=== PATIENT | male | born 1960 | race Caucasian/White ===

== ENCOUNTER → 2019-05-25 | Outpatient (CLI) | payer OTHER, MEDICARE ==
[~2019-05-25] MED LIST: CATHETER FLUSH 10 ML SYR IV PRN; HOLD METFORMIN - RECEIVED CONTRAST 20 ML VIAL IV SCH; IOHEXOL 350 MG/ML 100 ML (OMNIPAQUE 350) VIAL IV ONE; NS 100 ML (IVPB) BAG IV ONE; RT-ALBUTEROL SULF 2.5 MG/3 ML PRE-MIX VIAL INH ONE
[2019-05-25 12:03] LABS: BUN/CREATININE RATIO 13; CREATININE SERUM 0.92 MG/DL (0.60-1.30); GFR ESTIMATED > 60
--- NOTE | 2019-05-25 15:09 | Diagnostic Imaging Report ---
PROCEDURE: CT chest with contrast only. TECHNIQUE: Multiple contiguous axial images were obtained through the chest after administration of intravenous contrast. Auto Exposure Controls were utilized during the CT exam to meet ALARA standards for radiation dose reduction. INDICATION: COPD. Cough. COMPARISON: None provided. FINDINGS: The heart size is within normal limits. No pericardial effusion is present. No acute abnormalities are visualized in the thoracic aorta. There is scattered calcified atherosclerotic plaque present. No large pulmonary emboli are seen to the segmental pulmonary arteries. Mildly prominent mediastinal lymph nodes are visualized. No pathologically enlarged lymphadenopathy is seen in the chest. Numerous millimetric pulmonary nodules are seen throughout the lungs. A marker nodule is seen in the left lower lobe measuring 0.7 cm (image 81 series 3). A marker nodule in the inferior aspect of the right upper lobe measures 0.5 cm (image 72, series 3). Patchy opacities are seen in the right lung base. No central endobronchial obstructing lesions are identified. A small right pleural effusion is seen. Fluid is seen tracking in the minor fissure. No evidence of pneumothorax. The osseous structures demonstrate no acute abnormalities. Possible enhancing focus is seen in the medial aspect of the spleen measuring 3.6 cm. Both adrenal glands are unremarkable. IMPRESSION: 1. Patchy opacities in the right lung base with small right pleural effusion. Numerous millimetric nodular opacities are seen throughout the lungs. This constellation of findings may represent infectious or inflammatory etiology. Recommend follow-up chest CT after symptoms improve to document resolution of the nodules or stability. 2. Possible enhancing lesion in the medial aspect of the spleen. However, evaluation is suboptimal on this exam. If indicated, consider CT of the abdomen and pelvis with delayed images to further characterize. Dictated by: Dictated on workstation # [id number]
== END ==
LOC: RT 09:58
PROVIDERS: ATTEND Nurse Practitioner Family
DX: J44.9 Chronic obstructive pulmonary disease, unspecified (principal); G47.30 Sleep apnea, unspecified; Z72.0 Tobacco use
CPT/HCPCS: 36415; 71260; 82565; 84520; 94060; 94726; 94729

== ENCOUNTER 2019-06-30 14:47 | Inpatient (IN) | payer OTHER, MEDICARE ==
[~2019-06-30] VITALS: Ht 175.4 cm; Wt 124.0 kg
[2019-06-30 15:30] VITALS: BP 131/89
[2019-06-30 16:23] LABS: BASOPHILS % (AUTO) 0 % (0-10); EOSINOPHILS # (AUTO) 0.2 10^3/uL (0.0-0.3); EOSINOPHILS % (AUTO) 2 % (0-10); HEMATOCRIT 58 % (40-54); HEMOGLOBIN 18.4 G/DL (13.3-17.7); LYMPHOCYTES # (AUTO) 1.4 X 10^3 (1.0-4.0); LYMPHOCYTES % (AUTO) 18 % (12-44); MEAN CORPUSCULAR HEMOGLOBIN 34 PG (25-34); MEAN CORPUSCULAR HGB CONC 32 G/DL (32-36); MEAN CORPUSCULAR VOLUME 105 FL (80-99); MEAN PLATELET VOLUME 12.5 FL (7.4-10.4); MONOCYTES # (AUTO) 0.6 X 10^3 (0.0-1.0); MONOCYTES % (AUTO) 8 % (0-12); NEUTROPHILS # (AUTO) 5.5 X 10^3 (1.8-7.8); NEUTROPHILS % (AUTO) 71 % (42-75); PLATELET COUNT 89 10^3/uL (130-400); RED CELL DISTRIBUTION WIDTH 14.8 % (10.0-14.5); WHITE BLOOD COUNT 7.7 10^3/uL (4.3-11.0)
[2019-06-30] MEDS ORDERED: RT-ALBUTEROL/IPRATROPIUM 3 ML (DUONEB) VIAL IH PRN (16:30)
[2019-06-30] MEDS ORDERED: CATHETER FLUSH 10 ML SYR IV PRN (16:30)
--- NOTE | 2019-06-30 16:39 | Diagnostic Imaging Report ---
INDICATION: Hypoxemia. EXAMINATION: Portable chest at 4:21 p.m. FINDINGS: Heart size and pulmonary vascularity are within normal limits. There is a small right pleural effusion. IMPRESSION: Right pleural effusion with some associated right basilar consolidation. Dictated by: Dictated on workstation # [id number]
[2019-06-30 16:44] VITALS: BP 131/89
[2019-06-30 17:07] LABS: ALANINE AMINOTRANSFERASE 14 U/L (0-55); ALBUMIN 3.8 GM/DL (3.2-4.5); ALKALINE PHOSPHATASE 74 U/L (40-136); BILIRUBIN,TOTAL 0.7 MG/DL (0.1-1.0); BUN/CREATININE RATIO 12; CALCIUM 9.2 MG/DL (8.5-10.1); CARBON DIOXIDE 38 MMOL/L (21-32); CHLORIDE 95 MMOL/L (98-107); CREATININE SERUM 0.84 MG/DL (0.60-1.30); GFR ESTIMATED > 60; GLUCOSE 99 MG/DL (70-105); MAGNESIUM 1.9 MG/DL (1.6-2.4); PHOSPHORUS 2.6 MG/DL (2.3-4.7); POTASSIUM 4.3 MMOL/L (3.6-5.0); SODIUM 142 MMOL/L (135-145); TOTAL PROTEIN 6.8 GM/DL (6.4-8.2)
[2019-06-30] MEDS: FAMOTIDINE 20 MG (PEPCID) TABLET PO SCH (17:22)
[2019-06-30] MEDS: methylPREDNISolone 40 MG/ML (Solu-MEDROL) VIAL IV SCH ×2 (17:22→21:48)
[2019-06-30] MEDS: FUROSEMIDE 40 MG/4 ML INJ (LASIX) IV SCH (17:23)
[2019-06-30 20:55] VITALS: BP 128/81
[2019-06-30] MEDS: CATHETER FLUSH 10 ML SYR IV SCH (21:48)
[2019-06-30] MEDS: meTOprolol TARTRATE 50 MG (LOPRESSOR) TAB PO SCH (21:48)
[2019-06-30 22:30] VITALS: BP 128/81
[2019-06-30] MEDS: RT-ALBUTEROL/IPRATROPIUM 3 ML (DUONEB) VIAL IH SCH ×2 (22:30→22:38)
[2019-07-01] VITALS (9 sets, daily range): BP systolic 105–143; BP diastolic 57–89
[2019-07-01] MEDS: RT-ALBUTEROL/IPRATROPIUM 3 ML (DUONEB) VIAL IH SCH ×6 (03:00→22:32)
--- NOTE | 2019-07-01 03:30 | Pulmonary Consultation ---
MARISEL LAWRENCE MED STUDENT 07/01/19 0329: History of Present Illness History of Present Illness Date Seen by Provider: Jul 01, 2019 Time Seen by Provider: 03:10 Date of Admission The patient is an obese 58 year old male who was admitted to the ICU for increasing shortness of breath. The patient is answering all questions appropriately and fully cooperates with the physical exam. The patient states that he was seen in the office by Dr. Paul yesterday, who admitted him to the ICU. Today he reports that his shortness of breath is unchanged. He admits to an 80 pk/yr smoking history but has recently reduced his smoking to 1/2 pack per day. He reports a persistent cough that is non-productive. He denies chest pain, fever, chills, nausea, vomiting, or diarrhea. He has no questions or concerns at this time. Allergies and Home Medications Allergies Coded Allergies: No Known Drug Allergies (Unverified , 05/25/19) Past Vyecgyg-Fnnnif-Lbuyvx Hx Patient Social History Alcohol Use: Denies Use Recreational Drug Use: No Recent Foreign Travel: No Contact w/Someone Who Travel: No Recent Infectious Disease Expo: No Recent Hopitalizations: No Seasonal Allergies Seasonal Allergies: No Past Medical History Surgeries: Yes Respiratory: Yes Sleep Apnea, COPD Currently Using CPAP: Yes Cardiac: Yes Neurological: No Genitourinary: No Gastrointestinal: No Musculoskeletal: Yes (ESINFICLLIC GRANULOMA ) Endocrine: No HEENT: No Cancer: No Integumentary: No Family Medical History Diabetes mellitus 19 MOTHER Review of Systems Constitutional: No: Fever, Chills Respiratory: Cough, Shortness of breath; No: Sputum Cardiovascular: No: Chest Pain Gastrointestinal: No: Nausea, Vomiting, Diarrhea Sepsis Event Evaluation Height, Weight, BMI Height: '" Weight: lbs. oz. kg; 43.75 BMI Method: Exam Exam Vital Signs Date Time Temp Pulse Resp B/P (MAP) Pulse Ox O2 Delivery O2 Flow Rate FiO2 07/01/19 01:00 83 07/01/19 00:15 36.0 NIV Bilevel 65.00 07/01/19 00:00 77 23 143/84 (103) 89 Nasal Cannula 5.00 07/01/19 00:00 92 NIV Bilevel 65 06/30/19 21:00 90 Nasal Cannula 5.00 06/30/19 20:55 92 22 128/81 (97) 90 Nasal Cannula 5.00 06/30/19 20:00 36.2 06/30/19 20:00 90 Nasal Cannula 5.00 06/30/19 19:20 93 Nasal Cannula 6.00 06/30/19 19:00 95 06/30/19 17:27 99 06/30/19 16:44 36.3 89 20 131/89 94 Nasal Cannula 5.00 5.00 06/30/19 15:30 36.3 89 20 131/89 (103) 94 Nasal Cannula 5.00 06/30/19 15:30 Nasal Cannula 5.00 I & O 07/01/19 06:59 Intake Total 700 ml Balance 700 ml Height & Weight Height: '" Weight: lbs. oz. kg; 43.75 BMI Method: General Appearance: No Apparent Distress, Obese Cardiovascular: Bradycardia Capillary Refill: Less Than 3 Seconds Extremity: Pedal Edema Neurologic/Psychiatric: Alert, Oriented x3 Skin: Normal Color, Warm/Dry Results Lab Laboratory Tests 06/30/19 16:10 06/30/19 16:30 Assessment/Plan Assessment/Plan COPD exacerbation -Duonebs Q4h RT; Q2h PRN -Solumedrol 40mg Q6h -Sputum culture Acute Respiratory Failure -BiPAP 15/5/70% -ABGs CHF -Lasix 80mg daily DVT prophylaxis -Enoxaparin 40mg daily DAYRON PAUL DO 07/01/19 0500: History of Present Illness History of Present Illness Time Seen by Provider: 04:53 Allergies and Home Medications Allergies Coded Allergies: No Known Drug Allergies (Unverified , 05/25/19) Past Qvbjsts-Ontola-Xoweqc Hx Family Medical History Diabetes mellitus 19 MOTHER Review of Systems Time Seen by Provider: 04:53 Exam Exam General Appearance: No Apparent Distress, Obese HEENT: PERRL/EOMI, Pharynx Normal Neck: Non Tender, Supple Respiratory: Decreased Breath Sounds Cardiovascular: Bradycardia Gastrointestinal: normal bowel sounds, non tender, soft Extremity: Pedal Edema Neurologic/Psychiatric: Alert, Oriented x3 Skin: Normal Color, Warm/Dry Assessment/Plan Assessment/Plan COPD exacerbation -Duonebs Q4h RT; Q2h PRN -Solumedrol 40mg Q6h -toro cultures pending -Repeat ABG Acute on chronic Respiratory Failure -C02 on admission -BiPAP 15/5/70% -ABG C02 on admission is 64 -Pt is high risk for continued decline and recurrent hospitalizations. Pt will benefit from home vent to mask. 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 I reviewed and verified all information documented by the medical student and made modifications to such information, when appropriate. I personally performed the physical exam and medical decision making. Dayron Paul, Jul 01, 2019,05:00 MARISEL LAWRENCE MED STUDENT Jul 01, 2019 03:29 DAYRON PAUL DO Jul 01, 2019 05:00
[2019-07-01 03:36] LABS: BASOPHILS % (AUTO) 0 % (0-10); EOSINOPHILS % (AUTO) 0 % (0-10); HEMATOCRIT 58 % (40-54); HEMOGLOBIN 18.3 G/DL (13.3-17.7); LYMPHOCYTES # (AUTO) 0.6 X 10^3 (1.0-4.0); LYMPHOCYTES % (AUTO) 9 % (12-44); MEAN CORPUSCULAR HEMOGLOBIN 33 PG (25-34); MEAN CORPUSCULAR HGB CONC 31 G/DL (32-36); MEAN CORPUSCULAR VOLUME 105 FL (80-99); MONOCYTES % (AUTO) 1 % (0-12); NEUTROPHILS # (AUTO) 5.8 X 10^3 (1.8-7.8); NEUTROPHILS % (AUTO) 90 % (42-75); PLATELET COUNT 89 10^3/uL (130-400); RED CELL DISTRIBUTION WIDTH 14.7 % (10.0-14.5); WHITE BLOOD COUNT 6.5 10^3/uL (4.3-11.0)
[2019-07-01 04:42] LABS: BUN/CREATININE RATIO 16; CALCIUM 9.3 MG/DL (8.5-10.1); CARBON DIOXIDE 31 MMOL/L (21-32); CHLORIDE 96 MMOL/L (98-107); GFR ESTIMATED > 60; GLUCOSE 206 MG/DL (70-105); PHOSPHORUS 3.3 MG/DL (2.3-4.7); POTASSIUM 4.6 MMOL/L (3.6-5.0); SODIUM 140 MMOL/L (135-145)
[2019-07-01 05:40] LABS: ABG BASE EXCESS 15.1 MMOL/L (-2.5-2.5); ABG OXYGEN SATURATION 93 % (94-100); ABG PCO2 67 MMHG (35-45); ABG PO2 62 MMHG (79-93)
[2019-07-01 05:49] LABS: ALLENS TEST POSITIVE; INSPIRED O2 65%; PATIENT TEMP 36.2; VENTILATOR NO
[2019-07-01] MEDS: methylPREDNISolone 40 MG/ML (Solu-MEDROL) VIAL IV SCH ×4 (06:04→21:47)
[2019-07-01] MEDS: CATHETER FLUSH 10 ML SYR IV SCH ×3 (06:04→21:47)
[2019-07-01 06:48] LABS: LYMPHOCYTES % (MANUAL) 7 %; MONOCYTES % (MANUAL) 1 %; NEUTROPHILS % (MANUAL) 92 %
--- NOTE | 2019-07-01 08:06 | History & Physical-Hospitalist ---
History of Present Illness HPI/Chief Complaint Pt is a 58yoCM with a PMH of NIDDMII, COPD, and HTN who presented to Dr Paul's office yesterday due to SOB. He states this has been going on for a days to weeks but he's not sure. He is currently on BiPAP and answers are somewhat limited by that. He normally wears oxygen but was unable to maintain his oxygen sats with that and had increased it but on arrival to Dr Paul's office he was still hypoxia and ABG revealed hypoxemia. CT was done which showed no PE, moderate pleural effusion, and extensive bilateral infiltrates. He was admitted to [facility] for acute COPD exacerbation. This morning he states he is breathing better with the BiPAP and has no other complaints. Source: patient Date Seen 07/01/19 Time Seen by a Provider: 08:00 Attending Physician Josh Mistry MD PCP No,Local Physician Referring Physician Date of Admission Jun 30, 2019 at 15:57 Home Medications & Allergies Home Medications Reviewed patient Home Medication Reconciliation performed by pharmacy medication reconciliations ct technician and/or nursing. Patients Allergies have been reviewed. Allergies Allergies Coded Allergies No Known Drug Allergies (Uicgckphhg56/27/19) Past Gutbzji-Mbubra-Cxdvhj Hx Past Med/Social Hx: Reviewed Nursing Past Med/Soc Hx Patient Social History Alcohol Use: Denies Use Recreational Drug Use: No Smoking Status: Current Everyday Smoker Physical Abuse Screen: No Sexual Abuse: No Recent Foreign Travel: No Contact w/other who traveled: No Recent Hopitalizations: No Recent Infectious Disease Expo: No Seasonal Allergies Seasonal Allergies: No Past Medical History Respiratory: COPD Currently Using CPAP: Yes Cardiac: Chronic Edema/Swelling, Hypertension Endocrine: Diabetes, Non-Insulin dep Family History Diabetes mellitus 19 MOTHER Review of Systems Constitutional: No chills, No fever, No weakness EENTM: no symptoms reported Respiratory: cough, dyspnea on exertion; No phlegm; short of breath Cardiovascular: no symptoms reported Gastrointestinal: no symptoms reported Genitourinary: no symptoms reported Musculoskeletal: no symptoms reported Skin: no symptoms reported Psychiatric/Neurological: No Symptoms Reported Physical Exam Physical Exam Vital Signs Vital Signs - First Documented 06/30/19 07/01/19 15:30 00:00 Temp 36.3 Pulse 89 Resp 20 B/P (MAP) 131/89 (103) Pulse Ox 94 O2 Delivery Nasal Cannula O2 Flow Rate 5.00 FiO2 65 Capillary Refill : Less Than 3 Seconds Height, Weight, BMI Height: '" Weight: lbs. oz. kg; 43.75 BMI Method: General Appearance: No Apparent Distress, Obese HEENT: No Scleral Icterus (L), No Scleral Icterus (R); Other (somewhat obscured by BiPAP mask) Neck: No JVD Respiratory: No Accessory Muscle Use, Wheezing, Other (on BiPAP) Cardiovascular: Regular Rate, Rhythm, No Murmur, Normal Peripheral Pulses Gastrointestinal: Normal Bowel Sounds, Non Tender, Soft Extremity: No Calf Tenderness, Pedal Edema, Swelling Neurologic/Psychiatric: Alert, Oriented x3, Normal Mood/Affect Skin: Other (venous stasis dermatitis on legs) Results Results/Procedures Labs Laboratory Tests 06/30/19 16:10 06/30/19 16:30 07/01/19 03:24 Patient resulted labs reviewed. Imaging: Reviewed Imaging Report Imaging Date of Exam:06/30/19 CT ANGIO CHEST W PROCEDURE: CT angiography of the chest with contrast. TECHNIQUE: Multiple contiguous axial images were obtained through the chest after uneventful bolus administration of intravenous contrast. 3D reconstructed CTA MIP acquisitions were also performed. Auto Exposure Controls were utilized during the CT exam to meet ALARA standards for radiation dose reduction. INDICATION: Shortness of breath. COMPARISON: Correlation is made with prior CT chest from 05/25/2019. FINDINGS: Evaluation of the pulmonary arterial system is without evidence of thromboembolism. No definite filling defects are seen within central, lobar, or segmental branches. The thoracic aorta is normal in caliber. No dissection is identified. No pericardial fluid is identified. There is trace left pleural effusion and mnuda-cs-dtwiievf right pleural effusion, similar to examination one month earlier. No axillary lymphadenopathy is identified. There are mildly prominent lymph nodes in the mediastinum, similar to prior exam. The poncho are unremarkable. Parenchymal evaluation does show centrilobular emphysematous changes. There is some ill-defined micronodules throughout both lungs, similar to prior exam. There is some parenchymal consolidation in the right lower lobe and right middle lobe, similar to prior exam. Upper abdomen is unremarkable. IMPRESSION: 1. No evidence of pulmonary embolism or thoracic aortic dissection. 2. Trace left and moderate right pleural effusion. 3. Extensive bilateral infiltrates, consolidative in the right lower lobe and right middle lobe. There are ill-defined nodular opacities throughout both lungs. The findings remain suggestive of an infectious/inflammatory process with underlying centrilobular emphysema. Assessment/Plan Admission Diagnosis Acute Hypoxemic Respiratory Failure Admission Status: Inpatient Order (span 2 midnights) Reason for Inpatient Admission: On bipap, will take more than two midnights to stablize for DC Assessment and Plan Acute Hypoxemic Respiratory Failure COPD with Acute Exacerbation Continue Steroids Pulm consulted, appreciate recs Continue Lasix ADRIANO level pending Afebrile and no leukocytosis so will hold on antibiotics but low threshold for them NIDDMII SSI Anticipate high blood sugars with steroids HTN BP normotensive currently Trend Polycythemia From chronic hypoxia Thrombocytopenia ?etiology no baseline available but is stable Tobacco abuse Recently cut back, encouraged continued cessation DVT ppx: Continue Lovenox Diagnosis/Problems Diagnosis/Problems (1) Acute respiratory failure Qualifiers: Respiratory failure complication: hypoxia Qualified Codes: J96.01 - Acute respiratory failure with hypoxia (2) COPD (chronic obstructive pulmonary disease) Qualifiers: COPD type: COPD with acute exacerbation Qualified Codes: J44.1 - Chronic obstructive pulmonary disease with (acute) exacerbation (3) Essential (primary) hypertension Status: Chronic (4) Non-insulin dependent type 2 diabetes mellitus Status: Chronic (5) Thrombocytopenia Status: Acute (6) Polycythemia secondary to hypoxia Status: Acute Clinical Quality Measures DVT/VTE Risk/Contraindication: Risk Factor Score Per Nursin RFS Level Per Nursing on Admit: 4+=Very High JOSH MISTRY MD Jul 01, 2019 08:06
[2019-07-01] MEDS ORDERED: ONDANSETRON 4 MG/2 ML (SDV) Z0FRAN IV PRN (08:15)
[2019-07-01] MEDS ORDERED: BISACODYL 10 MG SUPP (DULCOLAX) PR PRN (08:15)
[2019-07-01] MEDS ORDERED: MILK OF MAGNESIA 400 MG/5 ML 30 ML UDC PO PRN (08:15)
[2019-07-01] MEDS ORDERED: ACETAMINOPHEN 325 MG TABLET PO PRN (08:15)
[2019-07-01] MEDS ORDERED: BENZONATATE 100 MG (TESSALON) CAPSULE PO PRN (08:15)
[2019-07-01] MEDS ORDERED: ANTACID SUSP 30 ML UDC (MYLANTA) PO PRN (08:15)
--- NOTE | 2019-07-01 08:37 | Diagnostic Imaging Report ---
INDICATION: Respiratory failure. Portable chest 3:39 AM There is cardiomegaly. Pulmonary vascularity is normal. There is a small right pleural effusion. IMPRESSION: Small right pleural effusion. No significant change from the previous day. Dictated by: Dictated on workstation # [id number]
[2019-07-01] MEDS: meTOprolol TARTRATE 50 MG (LOPRESSOR) TAB PO SCH ×2 (08:40→21:50)
[2019-07-01] MEDS: lisINopril 20 MG (PRINIVIL) TABLET PO SCH (08:40)
[2019-07-01] MEDS: FAMOTIDINE 20 MG (PEPCID) TABLET PO SCH (08:40)
[2019-07-01] MEDS: FUROSEMIDE 40 MG/4 ML INJ (LASIX) IV SCH (08:40)
[2019-07-01] MEDS ORDERED: ENOXAPARIN 40 MG/0.4 ML (LOVENOX) SYR SC SCH (09:00)
[2019-07-01] MEDS ORDERED: LISINOPRIL PO (09:31)
[2019-07-01] MEDS ORDERED: BUDE10.2 IH (09:31)
[2019-07-01] MEDS ORDERED: MULT1TAB69 PO (09:31)
[2019-07-01] MEDS ORDERED: FURO40TA4 PO (09:31)
[2019-07-01] MEDS ORDERED: POTASSIUM PO (09:31)
[2019-07-01] MEDS ORDERED: EYE DROPS (09:31)
[2019-07-01] MEDS ORDERED: METOPROLOL PO (09:31)
[2019-07-01] MEDS ORDERED: TIOT4MIS2 IH (09:32)
[2019-07-01] MEDS: inSUlin ASPART (NovoLOG) 1 UNIT/0.01 ML (CHARGE PER UNIT) SC SCH ×3 (10:24→21:34)
[2019-07-01 10:43] LABS: BILIRUBIN,URINE NEGATIVE (NEGATIVE); CLARITY,URINE CLEAR; COLOR,URINE YELLOW; GLUCOSE, URINE (UA) 2+ (NEGATIVE); KETONES,URINE NEGATIVE (NEGATIVE); LEUKOCYTE ESTERASE ,URINE NEGATIVE (NEGATIVE); NITRITE,URINE NEGATIVE (NEGATIVE); PH,URINE 6.5 (5-9); PROTEIN,URINE NEGATIVE (NEGATIVE)
[2019-07-01 10:49] LABS: BACTERIA,URINE NEGATIVE /HPF; SQUAMOUS EPITHELIAL CELL,UR RARE /HPF
[2019-07-01] MEDS ORDERED: METO50TA15 PO (15:41)
[2019-07-01] MEDS ORDERED: FOSI10TA3 PO (15:41)
[2019-07-01] MEDS ORDERED: LATA2.5D5 OU (15:41)
[2019-07-01] MEDS ORDERED: BRIMON0.2 OU (15:41)
[2019-07-01] MEDS ORDERED: POTA-51 PO (15:41)
[2019-07-01] MEDS ORDERED: ATOR80TA76 PO (16:03)
[2019-07-01] MEDS ORDERED: ASPI-983 PO (16:03)
[2019-07-01] MEDS: ASPIRIN E.C. 81 MG (ECOTRIN) TAB PO SCH (19:23)
[2019-07-01] MEDS ORDERED: ADVAIR HFA 115/21 MCG INHALER 8 GM IH SCH (20:00)
[2019-07-01] MEDS: UMECLIDINIUM BROMIDE (INCRUSE ELLIPTA) 7'S IH SCH (20:13)
[2019-07-01] MEDS: BRIMONIDINE 0.2% (ALPHAGAN) OPHTH SOLN 5 ML BTL OU SCH (21:34)
[2019-07-01] MEDS: LATANOPROST 0.005% (XALATAN) OPHTH SOLN 2.5 ML OU SCH (21:34)
[2019-07-01] MEDS: ENOXAPARIN 40 MG/0.4 ML (LOVENOX) SYR SC SCH (21:35)
[2019-07-02 00:41] VITALS: BP 92/63
[2019-07-02] MEDS: RT-ALBUTEROL/IPRATROPIUM 3 ML (DUONEB) VIAL IH SCH ×5 (03:06→19:04)
[2019-07-02 04:35] VITALS: BP 106/72
[2019-07-02] MEDS: methylPREDNISolone 40 MG/ML (Solu-MEDROL) VIAL IV SCH ×4 (04:47→21:51)
[2019-07-02] MEDS: KCL 20 MEQ TAB (K-DUR) PO SCH ×2 (05:39→16:57)
[2019-07-02] MEDS: FUROSEMIDE 40 MG/4 ML INJ (LASIX) IV SCH (05:39)
[2019-07-02 05:49] LABS: BASOPHILS % (AUTO) 0 % (0-10); EOSINOPHILS % (AUTO) 0 % (0-10); HEMATOCRIT 57 % (40-54); HEMOGLOBIN 18.1 G/DL (13.3-17.7); LYMPHOCYTES # (AUTO) 0.6 X 10^3 (1.0-4.0); LYMPHOCYTES % (AUTO) 6 % (12-44); MEAN CORPUSCULAR HEMOGLOBIN 33 PG (25-34); MEAN CORPUSCULAR HGB CONC 32 G/DL (32-36); MEAN CORPUSCULAR VOLUME 104 FL (80-99); MEAN PLATELET VOLUME 11.4 FL (7.4-10.4); MONOCYTES # (AUTO) 0.3 X 10^3 (0.0-1.0); MONOCYTES % (AUTO) 3 % (0-12); NEUTROPHILS # (AUTO) 9.2 X 10^3 (1.8-7.8); NEUTROPHILS % (AUTO) 92 % (42-75); PLATELET COUNT 123 10^3/uL (130-400); RED CELL DISTRIBUTION WIDTH 15.2 % (10.0-14.5); WHITE BLOOD COUNT 10.1 10^3/uL (4.3-11.0)
[2019-07-02 06:03] LABS: BUN/CREATININE RATIO 22; CALCIUM 9.4 MG/DL (8.5-10.1); CARBON DIOXIDE 30 MMOL/L (21-32); CHLORIDE 95 MMOL/L (98-107); CREATININE SERUM 0.92 MG/DL (0.60-1.30); GFR ESTIMATED > 60; GLUCOSE 224 MG/DL (70-105); MAGNESIUM 2.1 MG/DL (1.6-2.4); SODIUM 141 MMOL/L (135-145)
[2019-07-02] MEDS: inSUlin ASPART (NovoLOG) 1 UNIT/0.01 ML (CHARGE PER UNIT) SC SCH ×4 (06:04→20:58)
[2019-07-02] MEDS: CATHETER FLUSH 10 ML SYR IV SCH ×3 (06:05→21:51)
[2019-07-02] MEDS: RT-ADVAIR HFA 115/21 MCG PER PUFF IH SCH ×3 (07:24→19:04)
[2019-07-02 07:51] VITALS: BP 117/63
[2019-07-02 08:01] LABS: ABG BASE EXCESS 13.8 MMOL/L (-2.5-2.5); ABG OXYGEN SATURATION 93 % (94-100); ABG PCO2 62 MMHG (35-45); ABG PH 7.42 (7.37-7.43); ABG PO2 68 MMHG (79-93); ABG TCO2 40.9 MMOL/L (21.0-31.0)
[2019-07-02 08:02] LABS: ALLENS TEST YES-POS; INSPIRED O2 70%; PATIENT TEMP 37; VENTILATOR NO
--- NOTE | 2019-07-02 08:11 | Pulmonary Progress Note ---
Subjective Time Seen by a Provider: 08:02 Subjective/Events-last exam Pt is still requiring high flow oxygen Sepsis Event Evaluation Height, Weight, BMI Height: '" Weight: lbs. oz. kg; 43.75 BMI Method: Focused Exam Lactate Level 06/30/19 16:30: Lactic Acid Level 0.83 Exam Exam Vital Signs Date Time Temp Pulse Resp B/P (MAP) Pulse Ox O2 Delivery O2 Flow Rate FiO2 07/02/19 07:32 89 Nasal Cannula 15.00 07/02/19 04:35 36.4 87 18 106/72 (83) 93 NIV Bilevel 70.00 07/02/19 04:10 93 NIV Bilevel 65 07/02/19 03:06 70 20 91 70.00 07/02/19 00:41 36.4 87 18 92/63 (73) 90 NIV Bilevel 70.00 07/02/19 00:00 93 NIV Bilevel 65 07/01/19 22:32 87 Nasal Cannula 10.00 07/01/19 21:00 High Flow N/C 15.00 07/01/19 20:00 36.7 83 20 108/72 (84) 92 High Flow N/C 13.00 07/01/19 20:00 High Flow N/C 15.00 07/01/19 19:14 88 Nasal Cannula 10.00 07/01/19 16:00 High Flow N/C 10.00 07/01/19 15:34 67 20 110/68 (82) 91 High Flow N/C 10.00 07/01/19 15:06 90 Nasal Cannula 10.00 07/01/19 12:17 36.1 54 22 114/57 (76) 90 High Flow N/C 10.00 07/01/19 12:00 High Flow N/C 10.00 07/01/19 11:10 86 Nasal Cannula 6.00 07/01/19 10:10 Nasal Cannula 6.00 07/01/19 10:05 36.9 80 20 105/77 (86) 94 Nasal Cannula 6.00 07/01/19 09:00 90 Nasal Cannula 5.00 I & O 07/02/19 07:00 Intake Total 1590 ml Balance 1590 ml Height & Weight Height: '" Weight: lbs. oz. kg; 43.75 BMI Method: General Appearance: No Apparent Distress, Obese HEENT: No Scleral Icterus (L), No Scleral Icterus (R); Other (somewhat obscured by BiPAP mask) Neck: No JVD Respiratory: No Accessory Muscle Use, Wheezing, Other (on BiPAP) Cardiovascular: Regular Rate, Rhythm, No Murmur, Normal Peripheral Pulses Capillary Refill: Less Than 3 Seconds Gastrointestinal: normal bowel sounds, non tender, soft Extremity: No Calf Tenderness, Pedal Edema, Swelling Neurologic/Psychiatric: Alert, Oriented x3, Normal Mood/Affect Skin: Other (venous stasis dermatitis on legs) Results Lab Laboratory Tests 06/30/19 16:10 06/30/19 16:30 07/01/19 03:24 07/02/19 05:12 Assessment/Plan Assessment/Plan COPD exacerbation -Duonebs Q4h RT; Q2h PRN -Solumedrol 40mg Q6h -toro cultures pending -Repeat ABG Acute on chronic Respiratory Failure -C02 on admission -BiPAP 15/5/70% -ABG C02 on admission is 64 -Pt is high risk for continued decline and recurrent hospitalizations. Pt will benefit from home vent to mask. 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
[2019-07-02] MEDS: lisINopril 20 MG (PRINIVIL) TABLET PO SCH (08:43)
[2019-07-02] MEDS: FAMOTIDINE 20 MG (PEPCID) TABLET PO SCH (08:43)
[2019-07-02] MEDS: meTOprolol TARTRATE 50 MG (LOPRESSOR) TAB PO SCH ×2 (08:43→20:57)
[2019-07-02] MEDS: BRIMONIDINE 0.2% (ALPHAGAN) OPHTH SOLN 5 ML BTL OU SCH ×2 (08:43→20:58)
[2019-07-02] MEDS: ENOXAPARIN 40 MG/0.4 ML (LOVENOX) SYR SC SCH ×2 (08:44→20:57)
[2019-07-02] MEDS ORDERED: FUROSEMIDE 40 MG/4 ML INJ (LASIX) IVP NR (08:45)
[2019-07-02] MEDS ORDERED: KCL 20 MEQ TAB (K-DUR) PO NR (08:46)
[2019-07-02 11:22] VITALS: BP 99/58
--- NOTE | 2019-07-02 11:24 | Progress Note - Hospitalist ---
Subjective HPI/CC On Admission Date Seen by Provider: Jul 02, 2019 Time Seen by Provider: 11:20 Pt is a 58yoCM with a PMH of NIDDMII, COPD, and HTN who presented to Dr Paul's office yesterday due to SOB. He states this has been going on for a days to weeks but he's not sure. He is currently on BiPAP and answers are somewhat limited by that. He normally wears oxygen but was unable to maintain his oxygen sats with that and had increased it but on arrival to Dr Paul's office he was still hypoxia and ABG revealed hypoxemia. CT was done which showed no PE, moderate pleural effusion, and extensive bilateral infiltrates. He was admitted to [facility] for acute COPD exacerbation. This morning he states he is breathing better with the BiPAP and has no other complaints. Subjective/Events-last exam Pt reports breathing is fine. No SOB or ALCARAZ. just low oxygen numbers. Discussed plan for diuresis and he states this has helped in the past. Focused Exam Lactate Level 06/30/19 16:30: Lactic Acid Level 0.83 Objective Exam Vital Signs Vital Signs Date Time Temp Pulse Resp B/P (MAP) Pulse Ox O2 Delivery O2 Flow Rate FiO2 07/02/19 10:46 90 Vapotherm 30.00 85 07/02/19 07:51 36.4 104 24 117/63 (81) Capillary Refill : Less Than 3 Seconds General Appearance: No Apparent Distress, Chronically ill, Obese Respiratory: No Accessory Muscle Use, No Respiratory Distress, Decreased Breath Sounds, Other (on vapotherm, breathing comfortbaly) Cardiovascular: Regular Rate, Rhythm, No Murmur Gastrointestinal: Non Tender, Soft Neurologic/Psychiatric: Alert, Oriented x3 Results/Procedures Lab Laboratory Tests 07/02/19 05:12 Patient resulted labs reviewed. Imaging: Reviewed Imaging Report Assessment/Plan Assessment and Plan Assess & Plan/Chief Complaint Acute Hypoxemic Respiratory Failure COPD with Acute Exacerbation Continue Steroids Pulm consulted, appreciate recs Continue Lasix- extra dose given today by Dr Paul ADRIANO level pending NIDDMII SSI Anticipate high blood sugars with steroids HTN BP normotensive currently Trend Polycythemia From chronic hypoxia Thrombocytopenia- improved ?etiology no baseline available but is stable HLD Continue statin Tobacco abuse Recently cut back, encouraged continued cessation DVT ppx: Continue Lovenox Diagnosis/Problems Diagnosis/Problems (1) Acute respiratory failure Qualifiers: Respiratory failure complication: hypoxia Qualified Codes: J96.01 - Acute respiratory failure with hypoxia (2) COPD (chronic obstructive pulmonary disease) Qualifiers: COPD type: COPD with acute exacerbation Qualified Codes: J44.1 - Chronic obstructive pulmonary disease with (acute) exacerbation (3) Essential (primary) hypertension Status: Chronic (4) Non-insulin dependent type 2 diabetes mellitus Status: Chronic (5) Thrombocytopenia Status: Acute (6) Polycythemia secondary to hypoxia Status: Acute Clinical Quality Measures DVT/VTE Risk/Contraindication: Risk Factor Score Per Nursin RFS Level Per Nursing on Admit: 4+=Very High JOSH TORREZ MD Jul 02, 2019 11:24
[2019-07-02 16:00] VITALS: BP 106/58
[2019-07-02 20:40] VITALS: BP 122/61
[2019-07-02] MEDS: LATANOPROST 0.005% (XALATAN) OPHTH SOLN 2.5 ML OU SCH (20:58)
[2019-07-03] VITALS (7 sets, daily range): BP systolic 107–143; BP diastolic 68–84
[2019-07-03] MEDS: RT-ALBUTEROL/IPRATROPIUM 3 ML (DUONEB) VIAL IH SCH ×7 (00:03→23:00)
[2019-07-03] MEDS: methylPREDNISolone 40 MG/ML (Solu-MEDROL) VIAL IV SCH ×4 (05:00→21:46)
[2019-07-03 05:32] LABS: BASOPHILS % (AUTO) 0 % (0-10); EOSINOPHILS % (AUTO) 0 % (0-10); HEMATOCRIT 55 % (40-54); HEMOGLOBIN 17.8 G/DL (13.3-17.7); LYMPHOCYTES # (AUTO) 0.5 X 10^3 (1.0-4.0); LYMPHOCYTES % (AUTO) 5 % (12-44); MEAN CORPUSCULAR HEMOGLOBIN 34 PG (25-34); MEAN CORPUSCULAR HGB CONC 32 G/DL (32-36); MEAN CORPUSCULAR VOLUME 104 FL (80-99); MEAN PLATELET VOLUME 11.8 FL (7.4-10.4); MONOCYTES # (AUTO) 0.4 X 10^3 (0.0-1.0); MONOCYTES % (AUTO) 4 % (0-12); NEUTROPHILS # (AUTO) 9.1 X 10^3 (1.8-7.8); NEUTROPHILS % (AUTO) 91 % (42-75); PLATELET COUNT 109 10^3/uL (130-400); RED CELL DISTRIBUTION WIDTH 15.4 % (10.0-14.5)
[2019-07-03 05:50] LABS: BUN/CREATININE RATIO 30; CALCIUM 9.3 MG/DL (8.5-10.1); CARBON DIOXIDE 32 MMOL/L (21-32); CHLORIDE 96 MMOL/L (98-107); CREATININE SERUM 0.81 MG/DL (0.60-1.30); GFR ESTIMATED > 60; GLUCOSE 222 MG/DL (70-105); MAGNESIUM 2.1 MG/DL (1.6-2.4); POTASSIUM 4.4 MMOL/L (3.6-5.0); SODIUM 140 MMOL/L (135-145)
[2019-07-03] MEDS: KCL 20 MEQ TAB (K-DUR) PO SCH ×2 (06:41→16:51)
[2019-07-03] MEDS: CATHETER FLUSH 10 ML SYR IV SCH ×3 (06:41→19:59)
[2019-07-03] MEDS: FUROSEMIDE 40 MG/4 ML INJ (LASIX) IV SCH (06:41)
[2019-07-03] MEDS: inSUlin ASPART (NovoLOG) 1 UNIT/0.01 ML (CHARGE PER UNIT) SC SCH ×4 (06:42→21:47)
--- NOTE | 2019-07-03 08:01 | Pulmonary Progress Note ---
Subjective Time Seen by a Provider: 08:01 Subjective/Events-last exam Still requiring Vapotherm high flow oxygen Sepsis Event Evaluation Height, Weight, BMI Height: '" Weight: lbs. oz. kg; 43.75 BMI Method: Focused Exam Lactate Level 06/30/19 16:30: Lactic Acid Level 0.83 Exam Exam Vital Signs Date Time Temp Pulse Resp B/P (MAP) Pulse Ox O2 Delivery O2 Flow Rate FiO2 07/03/19 04:15 36.4 62 18 112/75 (87) 95 NIV Bilevel 70.00 07/03/19 04:00 Vapotherm 85 07/03/19 03:32 58 20 90 70.00 07/03/19 00:25 36.4 62 18 113/77 (89) 93 NIV Bilevel 70.00 07/03/19 00:00 Vapotherm 85 07/02/19 21:00 Vapotherm 07/02/19 20:40 36.3 88 22 122/61 (81) 92 Vapotherm 30.00 85.00 07/02/19 20:00 Vapotherm 85 07/02/19 19:06 90 Vapotherm 30.00 85 07/02/19 16:00 37.0 87 22 106/58 (74) 92 Vapotherm 30.00 85.00 07/02/19 16:00 Vapotherm 85 07/02/19 15:00 90 Vapotherm 30.00 85 07/02/19 12:00 Vapotherm 07/02/19 11:22 36.6 80 22 99/58 (72) 90 Vapotherm 30.00 85.00 07/02/19 10:46 90 Vapotherm 30.00 85 07/02/19 09:00 Vapotherm I & O 07/03/19 07:00 Intake Total 1690 ml Balance 1690 ml Height & Weight Height: '" Weight: lbs. oz. kg; 43.75 BMI Method: General Appearance: No Apparent Distress, Obese HEENT: No Scleral Icterus (L), No Scleral Icterus (R); Other (somewhat obscured by BiPAP mask) Neck: No JVD Respiratory: No Accessory Muscle Use, Wheezing, Other (on BiPAP) Cardiovascular: Regular Rate, Rhythm, No Murmur, Normal Peripheral Pulses Capillary Refill: Less Than 3 Seconds Gastrointestinal: normal bowel sounds, non tender, soft Extremity: No Calf Tenderness, Pedal Edema, Swelling Neurologic/Psychiatric: Alert, Oriented x3, Normal Mood/Affect Skin: Other (venous stasis dermatitis on legs) Results Lab Laboratory Tests 07/02/19 05:12 07/03/19 05:09 Assessment/Plan Assessment/Plan COPD exacerbation -Duonebs Q4h RT; Q2h PRN -Solumedrol 40mg Q6h -toro cultures pending -Requiring Vapotherm high flow oxygen -Aggressively titrate Fi02 for Sp02 89-92% -WIll place on cont pulse ox Acute on chronic Respiratory Failure -C02 on admission -BiPAP 15/5/70% -ABG C02 on admission is 64 -Pt is high risk for continued decline and recurrent hospitalizations. Pt will benefit from home vent to mask. CHF -Lasix 80mg daily -CXR reviewed Polycythemia secondary to chronic hypoxia DVT prophylaxis -Enoxaparin 40mg daily DAYRON DOAN DO Jul 03, 2019 08:01
[2019-07-03] MEDS: BRIMONIDINE 0.2% (ALPHAGAN) OPHTH SOLN 5 ML BTL OU SCH ×2 (08:24→20:01)
[2019-07-03] MEDS: ENOXAPARIN 40 MG/0.4 ML (LOVENOX) SYR SC SCH ×2 (08:24→20:00)
[2019-07-03] MEDS: FAMOTIDINE 20 MG (PEPCID) TABLET PO SCH (08:24)
[2019-07-03] MEDS: lisINopril 20 MG (PRINIVIL) TABLET PO SCH (08:25)
[2019-07-03] MEDS: meTOprolol TARTRATE 50 MG (LOPRESSOR) TAB PO SCH ×2 (08:25→20:00)
[2019-07-03] MEDS: NICOTINE 21 MG (NICODERM) PATCH TD SCH (10:14)
[2019-07-03] MEDS: RT-ADVAIR HFA 115/21 MCG PER PUFF IH SCH ×2 (10:49→18:45)
[2019-07-03] MEDS: UMECLIDINIUM BROMIDE (INCRUSE ELLIPTA) 7'S IH SCH (10:50)
--- NOTE | 2019-07-03 11:51 | Progress Note - Hospitalist ---
Subjective HPI/CC On Admission Date Seen by Provider: Jul 03, 2019 Time Seen by Provider: 11:48 Pt is a 58yoCM with a PMH of NIDDMII, COPD, and HTN who presented to Dr Paul's office yesterday due to SOB. He states this has been going on for a days to weeks but he's not sure. He is currently on BiPAP and answers are somewhat limited by that. He normally wears oxygen but was unable to maintain his oxygen sats with that and had increased it but on arrival to Dr Paul's office he was still hypoxia and ABG revealed hypoxemia. CT was done which showed no PE, moderate pleural effusion, and extensive bilateral infiltrates. He was admitted to [facility] for acute COPD exacerbation. This morning he states he is breathing better with the BiPAP and has no other complaints. Subjective/Events-last exam Pt reports feeling well. Remains on vapotherm but is asymptomatic and actually requesting discharge. Was found with cigarettes yesterday and smoking. Now has nicotine patch. Focused Exam Lactate Level 06/30/19 16:30: Lactic Acid Level 0.83 Objective Exam Vital Signs Vital Signs Date Time Temp Pulse Resp B/P (MAP) Pulse Ox O2 Delivery O2 Flow Rate FiO2 07/03/19 11:27 91 Vapotherm 20.00 70 07/03/19 08:40 36.5 74 22 107/68 (81) Capillary Refill : Less Than 3 Seconds General Appearance: No Apparent Distress, Chronically ill, Obese Respiratory: Lungs Clear, No Respiratory Distress Cardiovascular: Regular Rate, Rhythm, No Murmur Gastrointestinal: Normal Bowel Sounds, Soft Neurologic/Psychiatric: Alert, Oriented x3, Normal Mood/Affect Results/Procedures Lab Laboratory Tests 07/03/19 05:09 Patient resulted labs reviewed. Imaging: Reviewed Imaging Report Assessment/Plan Assessment and Plan Assess & Plan/Chief Complaint Acute Hypoxemic Respiratory Failure COPD with Acute Exacerbation Continue Steroids Pulm consulted, appreciate recs Continue Lasix ADRIANO level 35 Echo pending NIDDMII SSI Anticipate high blood sugars with steroids Maintaing over 200 so will add low dose Levemir HTN BP normotensive currently Trend Polycythemia From chronic hypoxia Thrombocytopenia- improved ?etiology no baseline available but is stable HLD Continue statin Tobacco abuse Recently cut back, encouraged continued cessation Nicotine patch DVT ppx: Continue Lovenox Diagnosis/Problems Diagnosis/Problems (1) Acute respiratory failure Qualifiers: Respiratory failure complication: hypoxia Qualified Codes: J96.01 - Acute respiratory failure with hypoxia (2) COPD (chronic obstructive pulmonary disease) Qualifiers: COPD type: COPD with acute exacerbation Qualified Codes: J44.1 - Chronic obstructive pulmonary disease with (acute) exacerbation (3) Essential (primary) hypertension Status: Chronic (4) Non-insulin dependent type 2 diabetes mellitus Status: Chronic (5) Thrombocytopenia Status: Acute (6) Polycythemia secondary to hypoxia Status: Acute Clinical Quality Measures DVT/VTE Risk/Contraindication: Risk Factor Score Per Nursin RFS Level Per Nursing on Admit: 4+=Very High JOSH TORREZ MD Jul 03, 2019 11:51
[2019-07-03] MEDS: MELATONIN 3 MG TABLET PO PRN (20:00)
[2019-07-03] MEDS: LATANOPROST 0.005% (XALATAN) OPHTH SOLN 2.5 ML OU SCH (20:02)
[2019-07-04] VITALS (7 sets, daily range): BP systolic 105–149; BP diastolic 63–81
[2019-07-04] MEDS: RT-ALBUTEROL/IPRATROPIUM 3 ML (DUONEB) VIAL IH SCH ×6 (03:25→21:39)
[2019-07-04] MEDS: methylPREDNISolone 40 MG/ML (Solu-MEDROL) VIAL IV SCH ×4 (04:41→22:33)
[2019-07-04 06:07] LABS: BASOPHILS % (AUTO) 0 % (0-10); EOSINOPHILS % (AUTO) 0 % (0-10); HEMATOCRIT 55 % (40-54); HEMOGLOBIN 17.7 G/DL (13.3-17.7); LYMPHOCYTES # (AUTO) 0.5 X 10^3 (1.0-4.0); LYMPHOCYTES % (AUTO) 6 % (12-44); MEAN CORPUSCULAR HEMOGLOBIN 33 PG (25-34); MEAN CORPUSCULAR HGB CONC 32 G/DL (32-36); MEAN CORPUSCULAR VOLUME 103 FL (80-99); MEAN PLATELET VOLUME 11.1 FL (7.4-10.4); MONOCYTES # (AUTO) 0.4 X 10^3 (0.0-1.0); MONOCYTES % (AUTO) 5 % (0-12); NEUTROPHILS # (AUTO) 7.3 X 10^3 (1.8-7.8); NEUTROPHILS % (AUTO) 89 % (42-75); PLATELET COUNT 117 10^3/uL (130-400); RED CELL DISTRIBUTION WIDTH 15.2 % (10.0-14.5); WHITE BLOOD COUNT 8.1 10^3/uL (4.3-11.0)
[2019-07-04] MEDS: KCL 20 MEQ TAB (K-DUR) PO SCH ×2 (06:27→18:09)
[2019-07-04] MEDS: FUROSEMIDE 40 MG/4 ML INJ (LASIX) IV SCH (06:27)
[2019-07-04] MEDS: inSUlin ASPART (NovoLOG) 1 UNIT/0.01 ML (CHARGE PER UNIT) SC SCH ×4 (06:27→21:10)
[2019-07-04 06:29] LABS: BUN/CREATININE RATIO 29; CALCIUM 9.2 MG/DL (8.5-10.1); CARBON DIOXIDE 30 MMOL/L (21-32); CHLORIDE 95 MMOL/L (98-107); CREATININE SERUM 0.82 MG/DL (0.60-1.30); GFR ESTIMATED > 60; GLUCOSE 234 MG/DL (70-105); MAGNESIUM 2.2 MG/DL (1.6-2.4); PHOSPHORUS 4.2 MG/DL (2.3-4.7); POTASSIUM 4.5 MMOL/L (3.6-5.0); SODIUM 138 MMOL/L (135-145)
[2019-07-04] MEDS: CATHETER FLUSH 10 ML SYR IV SCH ×3 (06:30→22:33)
[2019-07-04] MEDS: UMECLIDINIUM BROMIDE (INCRUSE ELLIPTA) 7'S IH SCH (07:29)
[2019-07-04] MEDS: RT-ADVAIR HFA 115/21 MCG PER PUFF IH SCH ×2 (07:29→18:36)
[2019-07-04] MEDS: lisINopril 20 MG (PRINIVIL) TABLET PO SCH (09:45)
[2019-07-04] MEDS: FAMOTIDINE 20 MG (PEPCID) TABLET PO SCH (09:45)
[2019-07-04] MEDS: NICOTINE PATCH REMOVAL TP SCH (09:45)
[2019-07-04] MEDS: NICOTINE 21 MG (NICODERM) PATCH TD SCH (09:45)
[2019-07-04] MEDS: meTOprolol TARTRATE 50 MG (LOPRESSOR) TAB PO SCH ×2 (09:45→21:03)
[2019-07-04] MEDS: ENOXAPARIN 40 MG/0.4 ML (LOVENOX) SYR SC SCH ×2 (09:46→21:03)
[2019-07-04] MEDS: BRIMONIDINE 0.2% (ALPHAGAN) OPHTH SOLN 5 ML BTL OU SCH ×2 (09:46→21:04)
--- NOTE | 2019-07-04 11:22 | Progress Note - Hospitalist ---
Subjective HPI/CC On Admission Date Seen by Provider: Jul 04, 2019 Time Seen by Provider: 08:50 Pt is a 58yoCM with a PMH of NIDDMII, COPD, and HTN who presented to Dr Paul's office yesterday due to SOB. He states this has been going on for a days to weeks but he's not sure. He is currently on BiPAP and answers are somewhat limited by that. He normally wears oxygen but was unable to maintain his oxygen sats with that and had increased it but on arrival to Dr Paul's office he was still hypoxia and ABG revealed hypoxemia. CT was done which showed no PE, moderate pleural effusion, and extensive bilateral infiltrates. He was admitted to [facility] for acute COPD exacerbation. This morning he states he is breathing better with the BiPAP and has no other complaints. Subjective/Events-last exam He reports feeling well this morning. He denies any shortness of breath. He denies any cough. He denies any fevers or chills. He denies any pain. He feels like his normal self. Objective Exam Vital Signs Vital Signs Date Time Temp Pulse Resp B/P (MAP) Pulse Ox O2 Delivery O2 Flow Rate FiO2 07/04/19 10:54 90 Vapotherm 20.00 55 07/04/19 08:00 36.4 71 20 117/78 (91) Capillary Refill : Less Than 3 Seconds General Appearance: No Apparent Distress, WD/WN HEENT: PERRL/EOMI, Pharynx Normal, Other (Wearing nasal cannula) Neck: Normal Inspection, Supple Respiratory: Lungs Clear, Normal Breath Sounds, No Respiratory Distress Cardiovascular: Regular Rate, Rhythm, No Edema, No Murmur Gastrointestinal: Normal Bowel Sounds, Non Tender, Soft Extremity: Normal Inspection, Non Tender, No Pedal Edema Neurologic/Psychiatric: Alert, Oriented x3, No Motor/Sensory Deficits, Normal Mood/Affect Skin: Normal Color, Warm/Dry Lymphatic: No Adenopathy Results/Procedures Lab Laboratory Tests 07/04/19 05:28 Patient resulted labs reviewed. Imaging: Reviewed Imaging Report Assessment/Plan Assessment and Plan Assess & Plan/Chief Complaint Acute on chronic respiratory failure with hypoxemia COPD with acute exacerbation -Currently on Vapotherm -Continue steroids and breathing treatments -Pulm consulted, appreciate recs -Continue Lasix Type II diabetes mellitus -Levemir -SSI HTN -Well-controlled Polycythemia -Secondary to chronic hypoxemia Thrombocytopenia -Stable HLD -Continue statin Tobacco abuse -Nicotine patch DVT ppx: Continue Lovenox Diagnosis/Problems Diagnosis/Problems (1) Acute on chronic respiratory failure with hypoxia Status: Acute Clinical Quality Measures DVT/VTE Risk/Contraindication: Risk Factor Score Per Nursin RFS Level Per Nursing on Admit: 4+=Very High PAYTON ROTH MD Jul 04, 2019 11:22
--- NOTE | 2019-07-04 15:43 | Pulmonary Progress Note ---
Subjective Time Seen by a Provider: 15:43 Subjective/Events-last exam PT still requiring high flow oxygen. Sepsis Event Evaluation Height, Weight, BMI Height: '" Weight: lbs. oz. kg; 43.75 BMI Method: Exam Exam Vital Signs Date Time Temp Pulse Resp B/P (MAP) Pulse Ox O2 Delivery O2 Flow Rate FiO2 07/04/19 11:51 36.8 61 22 149/75 (99) 92 Vapotherm 20.00 55.00 07/04/19 10:54 90 Vapotherm 20.00 55 07/04/19 09:00 92 Vapotherm 40.00 65 07/04/19 08:00 90 Vapotherm 07/04/19 08:00 36.4 71 20 117/78 (91) 90 Vapotherm 20.00 55.00 07/04/19 07:27 94 Vapotherm 40.00 65 07/04/19 04:00 92 NIV Bilevel 70 07/04/19 03:30 36.3 66 20 120/81 (94) 92 NIV Bilevel 70.00 07/04/19 03:27 56 20 92 70.00 07/04/19 00:21 36.5 63 22 110/76 (87) 92 NIV Bilevel 70.00 07/04/19 00:00 NIV Bilevel 70 07/03/19 23:00 89 Vapotherm 40.00 65 07/03/19 21:00 90 Vapotherm 40.00 65 07/03/19 20:00 Vapotherm 40.00 65 07/03/19 19:42 36.6 85 20 123/71 (88) 90 Vapotherm 45.00 60.00 07/03/19 18:46 91 Vapotherm 20.00 60 07/03/19 16:00 Vapotherm 70 I & O 07/04/19 07:00 Intake Total 1816 ml Balance 1816 ml Height & Weight Height: '" Weight: lbs. oz. kg; 43.75 BMI Method: General Appearance: No Apparent Distress, WD/WN HEENT: PERRL/EOMI, Pharynx Normal, Other (Wearing nasal cannula) Neck: Normal Inspection, Supple Respiratory: Lungs Clear, Normal Breath Sounds, No Respiratory Distress Cardiovascular: Regular Rate, Rhythm, No Edema, No Murmur Capillary Refill: Greater Than 3 Seconds Gastrointestinal: normal bowel sounds, non tender, soft Extremity: Normal Inspection, Non Tender, No Pedal Edema Neurologic/Psychiatric: Alert, Oriented x3, No Motor/Sensory Deficits, Normal Mood/Affect Skin: Normal Color, Warm/Dry Lymphatic: No Adenopathy Results Lab Laboratory Tests 07/03/19 05:09 07/04/19 05:28 Assessment/Plan Assessment/Plan COPD exacerbation -Duonebs Q4h RT; Q2h PRN -Solumedrol 40mg Q6h -toro cultures pending -Requiring Vapotherm high flow oxygen -Aggressively titrate Fi02 for Sp02 89-92% -cont pulse ox -Repeat ABG and CXR Acute on chronic Respiratory Failure -C02 on admission -BiPAP 15/5/70% -ABG C02 on admission is 64 -Pt is high risk for continued decline and recurrent hospitalizations. Pt will benefit from home vent to mask. CHF -Lasix 80mg daily -CXR reviewed Polycythemia secondary to chronic hypoxia DVT prophylaxis -Enoxaparin 40mg daily DAYRON DOAN DO Jul 04, 2019 15:43
--- NOTE | 2019-07-04 16:21 | Diagnostic Imaging Report ---
INDICATION: Shortness of breath. Portable chest at 04:06 p.m. FINDINGS: There is some volume loss at both lung bases, but no definite infiltrate seen. There is no effusion or pneumothorax. IMPRESSION: No acute abnormalities in the chest. Dictated by: Dictated on workstation # [id number]
[2019-07-04 16:25] LABS: ABG BASE EXCESS 12.6 MMOL/L (-2.5-2.5); ABG OXYGEN SATURATION 93 % (94-100); ABG PCO2 50 MMHG (35-45); ABG PH 7.48 (7.37-7.43); ABG PO2 65 MMHG (79-93); ABG TCO2 38.6 MMOL/L (21.0-31.0); ALLENS TEST YES-POS
[2019-07-04 16:26] LABS: PATIENT TEMP 36.4; VENTILATOR NO
[2019-07-04] MEDS: ASPIRIN E.C. 81 MG (ECOTRIN) TAB PO SCH (18:09)
[2019-07-04] MEDS: MELATONIN 3 MG TABLET PO PRN (21:02)
[2019-07-04] MEDS: LATANOPROST 0.005% (XALATAN) OPHTH SOLN 2.5 ML OU SCH (21:04)
[2019-07-05] MEDS: RT-ALBUTEROL/IPRATROPIUM 3 ML (DUONEB) VIAL IH SCH ×6 (02:07→21:49)
[2019-07-05 04:00] VITALS: BP 113/70
[2019-07-05] MEDS: methylPREDNISolone 40 MG/ML (Solu-MEDROL) VIAL IV SCH ×4 (04:39→21:32)
[2019-07-05 05:22] LABS: BASOPHILS % (AUTO) 0 % (0-10); EOSINOPHILS % (AUTO) 0 % (0-10); HEMATOCRIT 54 % (40-54); HEMOGLOBIN 17.7 G/DL (13.3-17.7); LYMPHOCYTES # (AUTO) 0.5 X 10^3 (1.0-4.0); LYMPHOCYTES % (AUTO) 5 % (12-44); MEAN CORPUSCULAR HEMOGLOBIN 33 PG (25-34); MEAN CORPUSCULAR HGB CONC 33 G/DL (32-36); MEAN CORPUSCULAR VOLUME 102 FL (80-99); MEAN PLATELET VOLUME 11.9 FL (7.4-10.4); MONOCYTES # (AUTO) 0.4 X 10^3 (0.0-1.0); MONOCYTES % (AUTO) 5 % (0-12); NEUTROPHILS # (AUTO) 7.5 X 10^3 (1.8-7.8); NEUTROPHILS % (AUTO) 90 % (42-75); PLATELET COUNT 104 10^3/uL (130-400); WHITE BLOOD COUNT 8.3 10^3/uL (4.3-11.0)
[2019-07-05 05:50] LABS: BUN/CREATININE RATIO 31; CALCIUM 9.2 MG/DL (8.5-10.1); CARBON DIOXIDE 29 MMOL/L (21-32); CHLORIDE 94 MMOL/L (98-107); CREATININE SERUM 0.81 MG/DL (0.60-1.30); GFR ESTIMATED > 60; GLUCOSE 234 MG/DL (70-105); MAGNESIUM 2.1 MG/DL (1.6-2.4); PHOSPHORUS 3.7 MG/DL (2.3-4.7); POTASSIUM 4.4 MMOL/L (3.6-5.0); SODIUM 137 MMOL/L (135-145)
[2019-07-05] MEDS: inSUlin ASPART (NovoLOG) 1 UNIT/0.01 ML (CHARGE PER UNIT) SC SCH ×4 (06:37→21:31)
[2019-07-05] MEDS: FUROSEMIDE 40 MG/4 ML INJ (LASIX) IV SCH ×2 (06:37→15:11)
[2019-07-05] MEDS: CATHETER FLUSH 10 ML SYR IV SCH ×3 (06:38→21:32)
[2019-07-05] MEDS: KCL 20 MEQ TAB (K-DUR) PO SCH ×2 (06:38→16:52)
[2019-07-05 08:00] VITALS: BP 114/73
[2019-07-05] MEDS: ENOXAPARIN 40 MG/0.4 ML (LOVENOX) SYR SC SCH ×2 (09:34→21:31)
[2019-07-05] MEDS: FAMOTIDINE 20 MG (PEPCID) TABLET PO SCH (09:34)
[2019-07-05] MEDS: lisINopril 20 MG (PRINIVIL) TABLET PO SCH (09:34)
[2019-07-05] MEDS: NICOTINE 21 MG (NICODERM) PATCH TD SCH (09:34)
[2019-07-05] MEDS: meTOprolol TARTRATE 50 MG (LOPRESSOR) TAB PO SCH ×2 (09:34→21:30)
[2019-07-05] MEDS: BRIMONIDINE 0.2% (ALPHAGAN) OPHTH SOLN 5 ML BTL OU SCH ×2 (09:35→21:31)
[2019-07-05] MEDS: NICOTINE PATCH REMOVAL TP SCH (09:35)
--- NOTE | 2019-07-05 09:56 | Progress Note - Hospitalist ---
Subjective HPI/CC On Admission Date Seen by Provider: Jul 05, 2019 Time Seen by Provider: 08:15 Pt is a 58yoCM with a PMH of NIDDMII, COPD, and HTN who presented to Dr Paul's office yesterday due to SOB. He states this has been going on for a days to weeks but he's not sure. He is currently on BiPAP and answers are somewhat limited by that. He normally wears oxygen but was unable to maintain his oxygen sats with that and had increased it but on arrival to Dr Paul's office he was still hypoxia and ABG revealed hypoxemia. CT was done which showed no PE, moderate pleural effusion, and extensive bilateral infiltrates. He was admitted to [facility] for acute COPD exacerbation. This morning he states he is breathing better with the BiPAP and has no other complaints. Subjective/Events-last exam He reports no complaints or concerns. He says that he is breathing well. He denies any cough. He denies any fevers or chills. He has no other complaints including abdominal pain, nausea, vomiting, or diarrhea. Objective Exam Vital Signs Vital Signs Date Time Temp Pulse Resp B/P (MAP) Pulse Ox O2 Delivery O2 Flow Rate FiO2 07/05/19 08:00 90 Vapotherm 20.00 55 07/05/19 08:00 36.2 68 20 114/73 (87) Capillary Refill : Less Than 3 SecondsLess Than 3 Seconds General Appearance: No Apparent Distress, WD/WN HEENT: PERRL/EOMI, Pharynx Normal Neck: Normal Inspection, Supple Respiratory: Lungs Clear, Normal Breath Sounds, No Respiratory Distress, Other (Wearing nasal cannula (vapotherm)) Cardiovascular: Regular Rate, Rhythm, No Edema, No Murmur Gastrointestinal: Normal Bowel Sounds, Non Tender, Soft Extremity: Normal Inspection, Non Tender, No Pedal Edema Neurologic/Psychiatric: Alert, Oriented x3, No Motor/Sensory Deficits, Normal Mood/Affect Skin: Normal Color, Warm/Dry Results/Procedures Lab Laboratory Tests 07/05/19 04:21 Patient resulted labs reviewed. Imaging: Reviewed Imaging Report Assessment/Plan Assessment and Plan Assess & Plan/Chief Complaint Acute on chronic respiratory failure with hypoxemia COPD with acute exacerbation -Remains on Vapotherm -Continue steroids and breathing treatments -Pulm consulted, appreciate recs -Increase Lasix Type II diabetes mellitus -Increase Levemir -SSI HTN -Well-controlled, continue lisinopril and metoprolol Polycythemia -Secondary to chronic hypoxemia Thrombocytopenia -Stable HLD -Continue statin Tobacco abuse -Nicotine patch DVT ppx: Continue Lovenox Diagnosis/Problems Diagnosis/Problems (1) Acute on chronic respiratory failure with hypoxia Status: Acute Clinical Quality Measures DVT/VTE Risk/Contraindication: Risk Factor Score Per Nursin RFS Level Per Nursing on Admit: 4+=Very High PAYTON ROTH MD Jul 05, 2019 09:56
[2019-07-05] MEDS: UMECLIDINIUM BROMIDE (INCRUSE ELLIPTA) 7'S IH SCH (10:07)
[2019-07-05] MEDS: RT-ADVAIR HFA 115/21 MCG PER PUFF IH SCH ×2 (10:08→18:49)
--- NOTE | 2019-07-05 15:43 | Pulmonary Progress Note ---
Subjective Time Seen by a Provider: 15:42 Subjective/Events-last exam Still requiring high flow oxygen Sepsis Event Evaluation Height, Weight, BMI Height: '" Weight: lbs. oz. kg; 43.75 BMI Method: Exam Exam Vital Signs Date Time Temp Pulse Resp B/P (MAP) Pulse Ox O2 Delivery O2 Flow Rate FiO2 07/05/19 13:54 91 Vapotherm 15.00 55 07/05/19 10:09 89 07/05/19 10:09 89 07/05/19 10:08 87 Vapotherm 20.00 55 07/05/19 08:00 90 Vapotherm 20.00 55 07/05/19 08:00 36.2 68 20 114/73 (87) 91 Vapotherm 07/05/19 06:33 60 18 90 70.00 07/05/19 04:00 37.0 62 20 113/70 (84) 91 NIV Bilevel 20.00 55.00 07/05/19 02:07 58 21 91 70.00 07/04/19 23:33 37.1 63 20 109/70 (83) 91 NIV Bilevel 20.00 55.00 07/04/19 21:39 92 Vapotherm 20.00 55 07/04/19 21:00 90 Vapotherm 30.00 55 07/04/19 19:59 36.7 90 22 114/63 (80) 93 Vapotherm 20.00 55.00 07/04/19 18:36 90 Vapotherm 20.00 55 07/04/19 16:00 36.7 72 22 105/68 (80) 90 Vapotherm 20.00 55.00 I & O 07/05/19 07:00 Intake Total 2700 ml Balance 2700 ml Height & Weight Height: '" Weight: lbs. oz. kg; 43.75 BMI Method: General Appearance: No Apparent Distress, WD/WN HEENT: PERRL/EOMI, Pharynx Normal Neck: Normal Inspection, Supple Respiratory: Lungs Clear, Normal Breath Sounds, No Respiratory Distress, Other (Wearing nasal cannula (vapotherm)) Cardiovascular: Regular Rate, Rhythm, No Edema, No Murmur Capillary Refill: Less Than 3 Seconds Gastrointestinal: normal bowel sounds, non tender, soft Extremity: Normal Inspection, Non Tender, No Pedal Edema Neurologic/Psychiatric: Alert, Oriented x3, No Motor/Sensory Deficits, Normal Mood/Affect Skin: Normal Color, Warm/Dry Lymphatic: No Adenopathy Results Lab Laboratory Tests 07/04/19 05:28 07/05/19 04:21 Assessment/Plan Assessment/Plan COPD exacerbation -Duonebs Q4h RT; Q2h PRN -Solumedrol 40mg Q6h -toro cultures pending -Requiring Vapotherm high flow oxygen -Aggressively titrate Fi02 for Sp02 89-92% -cont pulse ox -Repeat CTA of chest secondary to persistent hypoxia Acute on chronic Respiratory Failure -BiPAP PRN -ABG C02 on admission is 64 -Pt is high risk for continued decline and recurrent hospitalizations. Pt will benefit from home vent to mask. CHF -Lasix 80mg daily -CXR reviewed Polycythemia secondary to chronic hypoxia DVT prophylaxis -Enoxaparin 40mg daily DAYRON DOAN DO Jul 05, 2019 15:43
[2019-07-05 16:00] VITALS: BP 107/70
[2019-07-05] MEDS ORDERED: HOLD METFORMIN - RECEIVED CONTRAST 20 ML VIAL IV SCH (16:45)
[2019-07-05] MEDS ORDERED: IOHEXOL 350 MG/ML 150 ML (OMNIPAQUE 350) VIAL IV ONE (16:45)
[2019-07-05] MEDS ORDERED: NS 100 ML (IVPB) BAG IV ONE (16:45)
--- NOTE | 2019-07-05 16:57 | Diagnostic Imaging Report ---
PROCEDURE: CT angiography of the chest with contrast. TECHNIQUE: Multiple contiguous axial images were obtained through the chest after uneventful bolus administration of intravenous contrast. 3D reconstructed CTA MIP acquisitions were also performed. Auto Exposure Controls were utilized during the CT exam to meet ALARA standards for radiation dose reduction. INDICATION: Hypoxia. COMPARISON: Study compared to 06/30/2019. FINDINGS: There are no intraluminal pulmonary arterial filling defects identified. No findings of pulmonary arterial embolus. Right greater than left pleural effusions are not substantially changed. There is tortuosity of the atherosclerotic thoracic aorta, unchanged. Infiltrate in the infrahilar right lower lobe as well as the dependent left lower lobe, this is in part atelectasis and it has not significantly changed. The lung parenchyma diffusely shows somewhat reticular nodular interstitial pattern, greatest at the pulmonary apices, this is also unchanged. There is no pneumothorax. There is no pericardial effusion. There is a small hiatal hernia and mild cardiomegaly, stable. Upper abdomen is nonacute. IMPRESSION: No evidence for PE. Bilateral effusions, bilateral infiltrates, zones of atelectasis, and mild cardiomegaly are all unchanged from prior. No new abnormality. Dictated by: Dictated on workstation # [id number]
[2019-07-05] MEDS: LATANOPROST 0.005% (XALATAN) OPHTH SOLN 2.5 ML OU SCH (21:31)
[2019-07-05 23:24] VITALS: BP 120/75
[2019-07-06] MEDS: RT-ALBUTEROL/IPRATROPIUM 3 ML (DUONEB) VIAL IH SCH ×6 (01:40→21:09)
[2019-07-06] MEDS: methylPREDNISolone 40 MG/ML (Solu-MEDROL) VIAL IV SCH ×4 (04:47→21:20)
[2019-07-06] MEDS: CATHETER FLUSH 10 ML SYR IV SCH ×3 (06:30→21:21)
[2019-07-06] MEDS: KCL 20 MEQ TAB (K-DUR) PO SCH ×2 (06:30→16:41)
[2019-07-06] MEDS: inSUlin ASPART (NovoLOG) 1 UNIT/0.01 ML (CHARGE PER UNIT) SC SCH ×4 (06:30→21:21)
[2019-07-06] MEDS: FUROSEMIDE 40 MG/4 ML INJ (LASIX) IV SCH ×2 (06:30→16:40)
[2019-07-06 07:01] LABS: BASOPHILS % (AUTO) 0 % (0-10); EOSINOPHILS % (AUTO) 0 % (0-10); HEMATOCRIT 55 % (40-54); HEMOGLOBIN 17.8 G/DL (13.3-17.7); LYMPHOCYTES # (AUTO) 0.5 X 10^3 (1.0-4.0); LYMPHOCYTES % (AUTO) 6 % (12-44); MEAN CORPUSCULAR HEMOGLOBIN 33 PG (25-34); MEAN CORPUSCULAR HGB CONC 32 G/DL (32-36); MEAN CORPUSCULAR VOLUME 101 FL (80-99); MEAN PLATELET VOLUME 11.6 FL (7.4-10.4); MONOCYTES # (AUTO) 0.5 X 10^3 (0.0-1.0); MONOCYTES % (AUTO) 5 % (0-12); NEUTROPHILS # (AUTO) 7.7 X 10^3 (1.8-7.8); NEUTROPHILS % (AUTO) 89 % (42-75); PLATELET COUNT 104 10^3/uL (130-400); WHITE BLOOD COUNT 8.6 10^3/uL (4.3-11.0)
[2019-07-06] MEDS: RT-ADVAIR HFA 115/21 MCG PER PUFF IH SCH ×2 (07:04→17:55)
[2019-07-06] MEDS: UMECLIDINIUM BROMIDE (INCRUSE ELLIPTA) 7'S IH SCH (07:04)
[2019-07-06 07:25] LABS: BUN/CREATININE RATIO 31; CALCIUM 9.1 MG/DL (8.5-10.1); CARBON DIOXIDE 29 MMOL/L (21-32); CHLORIDE 96 MMOL/L (98-107); GFR ESTIMATED > 60; GLUCOSE 225 MG/DL (70-105); MAGNESIUM 2.2 MG/DL (1.6-2.4); POTASSIUM 4.6 MMOL/L (3.6-5.0); SODIUM 139 MMOL/L (135-145)
[2019-07-06 08:00] VITALS: BP 110/60
[2019-07-06] MEDS: meTOprolol TARTRATE 50 MG (LOPRESSOR) TAB PO SCH ×2 (08:25→21:20)
[2019-07-06] MEDS: lisINopril 20 MG (PRINIVIL) TABLET PO SCH (08:25)
[2019-07-06] MEDS: BRIMONIDINE 0.2% (ALPHAGAN) OPHTH SOLN 5 ML BTL OU SCH ×2 (08:25→21:22)
[2019-07-06] MEDS: FAMOTIDINE 20 MG (PEPCID) TABLET PO SCH (08:25)
[2019-07-06] MEDS: NICOTINE 21 MG (NICODERM) PATCH TD SCH (08:25)
[2019-07-06] MEDS: NICOTINE PATCH REMOVAL TP SCH (08:25)
[2019-07-06] MEDS: ENOXAPARIN 40 MG/0.4 ML (LOVENOX) SYR SC SCH ×2 (08:25→21:21)
[2019-07-06] MEDS ORDERED: VANCOMYCIN INJECTION 0.1 MG in NS (IVPB) 250 ML IV SCH (14:30)
[2019-07-06] MEDS ORDERED: PIPERACILLIN/TAZO 4.5 GM/NS 100 ML IV NR ×2 (14:30)
--- NOTE | 2019-07-06 14:34 | Progress Note - Hospitalist ---
Subjective HPI/CC On Admission Date Seen by Provider: Jul 06, 2019 Time Seen by Provider: 09:45 Pt is a 58yoCM with a PMH of NIDDMII, COPD, and HTN who presented to Dr Paul's office yesterday due to SOB. He states this has been going on for a days to weeks but he's not sure. He is currently on BiPAP and answers are somewhat limited by that. He normally wears oxygen but was unable to maintain his oxygen sats with that and had increased it but on arrival to Dr Paul's office he was still hypoxia and ABG revealed hypoxemia. CT was done which showed no PE, moderate pleural effusion, and extensive bilateral infiltrates. He was admitted to [facility] for acute COPD exacerbation. This morning he states he is breathing better with the BiPAP and has no other complaints. Subjective/Events-last exam He reports no new complaints or concerns. He is bringing up some green sputum now. He denies any trouble breathing. He denies any fevers or chills. He denies any nausea or vomiting. Objective Exam Vital Signs Vital Signs Date Time Temp Pulse Resp B/P (MAP) Pulse Ox O2 Delivery O2 Flow Rate FiO2 07/06/19 12:01 89 Vapotherm 16.00 60 07/06/19 08:00 36.6 76 18 110/60 (77) Capillary Refill : Less Than 3 SecondsLess Than 3 Seconds General Appearance: No Apparent Distress, WD/WN, Obese HEENT: PERRL/EOMI, Pharynx Normal Neck: Normal Inspection, Supple Respiratory: Lungs Clear, Normal Breath Sounds, No Respiratory Distress, Other (Wearing nasal cannula) Cardiovascular: Regular Rate, Rhythm, No Murmur Gastrointestinal: Normal Bowel Sounds, Non Tender, Soft Extremity: Non Tender, Pedal Edema, Other (Venous stasis dermatitis) Neurologic/Psychiatric: Alert, Oriented x3, No Motor/Sensory Deficits, Normal Mood/Affect Results/Procedures Lab Laboratory Tests 07/06/19 05:45 Patient resulted labs reviewed. Imaging: Reviewed Imaging Films, Reviewed Imaging Report, Discussed Imaging with Radiologist Assessment/Plan Assessment and Plan Assess & Plan/Chief Complaint Acute on chronic respiratory failure with hypoxemia COPD with acute exacerbation Healthcare associated pneumonia -CT scan with bilateral consolidations -Remains on Vapotherm -Continue steroids and breathing treatments -Pulm consulted, appreciate recs -Continue Lasix -Begin vancomycin and Zosyn -Obtain blood cultures Type II diabetes mellitus -Continue Levemir -SSI HTN -Well-controlled, continue lisinopril and metoprolol Polycythemia -Secondary to chronic hypoxemia Thrombocytopenia -Stable HLD -Continue statin Tobacco abuse -Nicotine patch DVT ppx: Continue Lovenox Diagnosis/Problems Diagnosis/Problems (1) Acute on chronic respiratory failure with hypoxia Status: Acute Clinical Quality Measures DVT/VTE Risk/Contraindication: Risk Factor Score Per Nursin RFS Level Per Nursing on Admit: 4+=Very High PAYTON ROTH MD Jul 06, 2019 14:34
--- NOTE | 2019-07-06 14:55 | Pulmonary Progress Note ---
Subjective Time Seen by a Provider: 14:54 Subjective/Events-last exam Pt still requiring a lot of oxygen. Sepsis Event Evaluation Height, Weight, BMI Height: '" Weight: lbs. oz. kg; 43.75 BMI Method: Exam Exam Vital Signs Date Time Temp Pulse Resp B/P (MAP) Pulse Ox O2 Delivery O2 Flow Rate FiO2 07/06/19 12:01 89 Vapotherm 16.00 60 07/06/19 08:00 36.6 76 18 110/60 (77) 75 Vapotherm 20.00 70.00 07/06/19 08:00 75 Vapotherm 16.00 60 07/06/19 08:00 36.6 76 18 110/60 (77) 75 Vapotherm 20.00 70.00 07/06/19 07:11 89 07/06/19 07:10 89 07/06/19 07:06 89 Vapotherm 15.00 60 07/06/19 07:00 92 Vapotherm 20.00 70.00 07/06/19 01:40 59 19 92 70.00 07/06/19 00:02 74 19 91 70.00 07/05/19 23:24 36.6 67 20 120/75 (90) 89 Vapotherm 15.00 60.00 07/05/19 21:50 90 Vapotherm 15.00 60 07/05/19 21:00 Vapotherm 07/05/19 18:57 93 Vapotherm 15.00 60 07/05/19 18:49 89 Vapotherm 15.00 55 07/05/19 16:00 36.6 73 22 107/70 (82) 89 Vapotherm 15.00 55.00 I & O 07/06/19 07:00 Intake Total 2580 ml Balance 2580 ml Height & Weight Height: '" Weight: lbs. oz. kg; 43.75 BMI Method: General Appearance: No Apparent Distress, WD/WN, Obese HEENT: PERRL/EOMI, Pharynx Normal Neck: Normal Inspection, Supple Respiratory: Lungs Clear, Normal Breath Sounds, No Respiratory Distress, Other (Wearing nasal cannula) Cardiovascular: Regular Rate, Rhythm, No Murmur Capillary Refill: Less Than 3 Seconds Gastrointestinal: normal bowel sounds, non tender, soft Extremity: Non Tender, Pedal Edema, Other (Venous stasis dermatitis) Neurologic/Psychiatric: Alert, Oriented x3, No Motor/Sensory Deficits, Normal M ood/Affect Skin: Normal Color, Warm/Dry Lymphatic: No Adenopathy Results Lab Laboratory Tests 07/05/19 04:21 07/06/19 05:45 Assessment/Plan Assessment/Plan COPD exacerbation -Duonebs Q4h RT; Q2h PRN -Solumedrol 40mg Q6h -toro cultures pending -Requiring Vapotherm high flow oxygen -Aggressively titrate Fi02 for Sp02 89-92% -cont pulse ox - CTA - reviewed -Start Zosyn Vanco -toro culture -D/w Dr. Gotti and Dr. Momin Acute on chronic Respiratory Failure -BiPAP PRN -ABG C02 on admission is 64 -Pt is high risk for continued decline and recurrent hospitalizations. Pt will benefit from home vent to mask. CHF -Lasix 80mg daily -CXR reviewed Polycythemia secondary to chronic hypoxia DVT prophylaxis -Enoxaparin 40mg daily DAYRON DOAN DO Jul 06, 2019 14:55
[2019-07-06] MEDS ORDERED: VANCOMYCIN 2000 MG/NS 500 ML IVPB IV NR ×2 (15:00)
[2019-07-06 16:00] VITALS: BP 108/57
[2019-07-06 21:12] VITALS: BP 104/62
[2019-07-06] MEDS: LATANOPROST 0.005% (XALATAN) OPHTH SOLN 2.5 ML OU SCH (21:22)
[2019-07-06] MEDS: PIPERACILLIN/TAZOBACTAM (BULK) 4.5 GM in NS (IVPB) 100 ML IV SCH (21:22)
[2019-07-07 00:30] VITALS: BP 109/72
[2019-07-07] MEDS: RT-ALBUTEROL/IPRATROPIUM 3 ML (DUONEB) VIAL IH SCH ×6 (02:16→21:52)
[2019-07-07] MEDS: VANCOMYCIN 1,750 MG/NS 500 ML IVPB IV SCH ×4 (02:38→16:06)
[2019-07-07] MEDS: methylPREDNISolone 40 MG/ML (Solu-MEDROL) VIAL IV SCH ×4 (04:41→21:52)
[2019-07-07] MEDS: PIPERACILLIN/TAZOBACTAM (BULK) 4.5 GM in NS (IVPB) 100 ML IV SCH ×3 (05:00→21:09)
[2019-07-07] MEDS: FUROSEMIDE 40 MG/4 ML INJ (LASIX) IV SCH ×2 (06:17→16:07)
[2019-07-07] MEDS: inSUlin ASPART (NovoLOG) 1 UNIT/0.01 ML (CHARGE PER UNIT) SC SCH ×4 (06:17→21:10)
[2019-07-07] MEDS: KCL 20 MEQ TAB (K-DUR) PO SCH ×2 (06:18→16:07)
[2019-07-07] MEDS: CATHETER FLUSH 10 ML SYR IV SCH ×3 (06:18→21:47)
[2019-07-07 07:18] LABS: BASOPHILS % (AUTO) 0 % (0-10); EOSINOPHILS % (AUTO) 0 % (0-10); HEMATOCRIT 57 % (40-54); HEMOGLOBIN 18.5 G/DL (13.3-17.7); LYMPHOCYTES # (AUTO) 0.5 X 10^3 (1.0-4.0); LYMPHOCYTES % (AUTO) 5 % (12-44); MEAN CORPUSCULAR HEMOGLOBIN 33 PG (25-34); MEAN CORPUSCULAR HGB CONC 33 G/DL (32-36); MEAN CORPUSCULAR VOLUME 101 FL (80-99); MONOCYTES # (AUTO) 0.4 X 10^3 (0.0-1.0); MONOCYTES % (AUTO) 4 % (0-12); NEUTROPHILS # (AUTO) 8.6 X 10^3 (1.8-7.8); NEUTROPHILS % (AUTO) 91 % (42-75); PLATELET COUNT 88 10^3/uL (130-400); WHITE BLOOD COUNT 9.5 10^3/uL (4.3-11.0)
[2019-07-07 07:41] LABS: BUN/CREATININE RATIO 33; CALCIUM 9.3 MG/DL (8.5-10.1); CARBON DIOXIDE 27 MMOL/L (21-32); CHLORIDE 96 MMOL/L (98-107); CREATININE SERUM 0.92 MG/DL (0.60-1.30); GFR ESTIMATED > 60; GLUCOSE 229 MG/DL (70-105); MAGNESIUM 2.3 MG/DL (1.6-2.4); POTASSIUM 4.4 MMOL/L (3.6-5.0); SODIUM 138 MMOL/L (135-145)
[2019-07-07 08:00] VITALS: BP 96/65
[2019-07-07 08:03] LABS: LYMPHOCYTES % (MANUAL) 4 %; MONOCYTES % (MANUAL) 5 %; NEUTROPHILS % (MANUAL) 91 %; RBC MORPH NORMAL
[2019-07-07] MEDS: meTOprolol TARTRATE 50 MG (LOPRESSOR) TAB PO SCH ×3 (08:18→21:20)
[2019-07-07] MEDS: FAMOTIDINE 20 MG (PEPCID) TABLET PO SCH (08:18)
[2019-07-07] MEDS: lisINopril 20 MG (PRINIVIL) TABLET PO SCH (08:18)
[2019-07-07] MEDS: NICOTINE 21 MG (NICODERM) PATCH TD SCH (08:18)
[2019-07-07] MEDS: ENOXAPARIN 40 MG/0.4 ML (LOVENOX) SYR SC SCH ×2 (08:18→21:09)
[2019-07-07] MEDS: NICOTINE PATCH REMOVAL TP SCH (08:19)
[2019-07-07] MEDS: BRIMONIDINE 0.2% (ALPHAGAN) OPHTH SOLN 5 ML BTL OU SCH ×2 (08:19→21:09)
--- NOTE | 2019-07-07 10:28 | Pulmonary Progress Note ---
Sepsis Event Evaluation Height, Weight, BMI Height: '" Weight: lbs. oz. kg; 43.75 BMI Method: Exam Exam Vital Signs Date Time Temp Pulse Resp B/P (MAP) Pulse Ox O2 Delivery O2 Flow Rate FiO2 07/07/19 08:00 36.3 80 20 96/65 (75) 90 Vapotherm 16.00 60.00 07/07/19 08:00 92 High Flow N/C 9.00 07/07/19 07:00 92 High Flow N/C 9.00 9.00 07/07/19 06:43 92 High Flow N/C 9.00 07/07/19 02:17 55 15 95 70.00 07/07/19 00:30 36.3 57 20 109/72 (84) 96 NIV Bilevel 70.00 07/06/19 21:12 36.5 63 20 104/62 (76) 94 Vapotherm 16.00 60.00 07/06/19 21:10 93 Vapotherm 16.00 60 07/06/19 21:00 Vapotherm 07/06/19 17:58 90 Vapotherm 16.00 60 07/06/19 16:00 36.8 70 22 108/57 (74) 90 Vapotherm 16.00 60.00 07/06/19 15:18 89 Vapotherm 16.00 60 07/06/19 12:01 89 Vapotherm 16.00 60 I & O 07/07/19 07:00 Intake Total 4147.5 ml Output Total 500 ml Balance 3647.5 ml Height & Weight Height: '" Weight: lbs. oz. kg; 43.75 BMI Method: General Appearance: No Apparent Distress, WD/WN HEENT: PERRL/EOMI, Pharynx Normal, Other (Wearing nasal cannula) Neck: Normal Inspection, Supple Respiratory: Lungs Clear, Normal Breath Sounds, No Respiratory Distress Cardiovascular: Regular Rate, Rhythm, No Edema, No Murmur Capillary Refill: Greater Than 3 Seconds Gastrointestinal: normal bowel sounds, non tender, soft Extremity: Normal Inspection, Non Tender, No Pedal Edema Neurologic/Psychiatric: Alert, Oriented x3, No Motor/Sensory Deficits, Normal Mood/Affect Skin: Normal Color, Warm/Dry Lymphatic: No Adenopathy Results Lab Laboratory Tests 07/06/19 05:45 1/9/20 06:52 Assessment/Plan Assessment/Plan COPD exacerbation -Duonebs Q4h RT; Q2h PRN -Solumedrol 40mg Q6h -toro cultures pending -Requiring Vapotherm high flow oxygen -Aggressively titrate Fi02 for Sp02 89-92% -cont pulse ox - CTA - reviewed -Continue Zosyn Vanco -toro culture Acute on chronic Respiratory Failure -BiPAP PRN -ABG C02 on admission is 64 -Pt is high risk for continued decline and recurrent hospitalizations. Pt will benefit from home vent to mask. 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
[2019-07-07] MEDS: RT-ADVAIR HFA 115/21 MCG PER PUFF IH SCH ×2 (11:10→17:55)
[2019-07-07] MEDS: UMECLIDINIUM BROMIDE (INCRUSE ELLIPTA) 7'S IH SCH (11:10)
[2019-07-07 11:37] VITALS: BP 95/62
--- NOTE | 2019-07-07 12:51 | Progress Note - Hospitalist ---
Subjective HPI/CC On Admission Date Seen by Provider: Jul 07, 2019 Time Seen by Provider: 12:00 Pt is a 58yoCM with a PMH of NIDDMII, COPD, and HTN who presented to Dr Paul's office yesterday due to SOB. He states this has been going on for a days to weeks but he's not sure. He is currently on BiPAP and answers are somewhat limited by that. He normally wears oxygen but was unable to maintain his oxygen sats with that and had increased it but on arrival to Dr Paul's office he was still hypoxia and ABG revealed hypoxemia. CT was done which showed no PE, moderate pleural effusion, and extensive bilateral infiltrates. He was admitted to [facility] for acute COPD exacerbation. This morning he states he is breathing better with the BiPAP and has no other complaints. Subjective/Events-last exam He denies trouble breathing. He does have a cough. He denies fever and chills. He has no other complaints or concerns. Objective Exam Vital Signs Vital Signs Date Time Temp Pulse Resp B/P (MAP) Pulse Ox O2 Delivery O2 Flow Rate FiO2 07/07/19 11:37 95/62 (73) 93 High Flow N/C 9.00 07/07/19 08:00 36.3 80 20 07/06/19 21:10 60 Capillary Refill : Less Than 3 SecondsGreater Than 3 Seconds General Appearance: No Apparent Distress, WD/WN, Obese HEENT: PERRL/EOMI, Pharynx Normal Neck: Normal Inspection, Supple Respiratory: Lungs Clear, Normal Breath Sounds, No Respiratory Distress Cardiovascular: Regular Rate, Rhythm, No Edema, No Murmur Gastrointestinal: Normal Bowel Sounds, Non Tender, Soft Extremity: Normal Inspection, Non Tender Neurologic/Psychiatric: Alert, Oriented x3, No Motor/Sensory Deficits, Normal Mood/Affect Skin: Normal Color, Warm/Dry Results/Procedures Lab Laboratory Tests 07/07/19 06:52 Patient resulted labs reviewed. Imaging: Reviewed Imaging Report Assessment/Plan Assessment and Plan Assess & Plan/Chief Complaint Acute on chronic respiratory failure with hypoxemia COPD with acute exacerbation Healthcare associated pneumonia -CT scan with bilateral consolidations -Transitioned to nasal cannula 9 L -Continue steroids and breathing treatments -Pulm consulted, appreciate recs -Continue Lasix -Continue vancomycin and Zosyn Type II diabetes mellitus -Continue Levemir -SSI HTN -Well-controlled, continue lisinopril and metoprolol Polycythemia -Secondary to chronic hypoxemia Thrombocytopenia -Stable HLD -Continue statin Tobacco abuse -Nicotine patch DVT ppx: Continue Lovenox Diagnosis/Problems Diagnosis/Problems (1) Acute on chronic respiratory failure with hypoxia Status: Acute Clinical Quality Measures DVT/VTE Risk/Contraindication: Risk Factor Score Per Nursin RFS Level Per Nursing on Admit: 4+=Very High PAYTON ROTH MD Jul 07, 2019 12:51
[2019-07-07] MEDS ORDERED: TROUGH ORDER-PHARMACY XX NR (14:00)
[2019-07-07 16:00] VITALS: BP 98/57
[2019-07-07] MEDS: LATANOPROST 0.005% (XALATAN) OPHTH SOLN 2.5 ML OU SCH (21:09)
[2019-07-07 21:20] VITALS: BP 99/60
[2019-07-08] VITALS: BP 97/59
[2019-07-08] MEDS: RT-ALBUTEROL/IPRATROPIUM 3 ML (DUONEB) VIAL IH SCH ×3 (01:58→10:57)
[2019-07-08] MEDS: VANCOMYCIN 1,750 MG/NS 500 ML IVPB IV SCH ×2 (02:25)
[2019-07-08] MEDS: methylPREDNISolone 40 MG/ML (Solu-MEDROL) VIAL IV SCH ×2 (04:37→09:02)
[2019-07-08] MEDS: PIPERACILLIN/TAZOBACTAM (BULK) 4.5 GM in NS (IVPB) 100 ML IV SCH (04:43)
[2019-07-08] MEDS: CATHETER FLUSH 10 ML SYR IV SCH (05:12)
[2019-07-08 05:33] LABS: BASOPHILS % (AUTO) 0 % (0-10); EOSINOPHILS % (AUTO) 0 % (0-10); HEMATOCRIT 54 % (40-54); HEMOGLOBIN 17.6 G/DL (13.3-17.7); LYMPHOCYTES # (AUTO) 0.5 X 10^3 (1.0-4.0); LYMPHOCYTES % (AUTO) 5 % (12-44); MEAN CORPUSCULAR HEMOGLOBIN 33 PG (25-34); MEAN CORPUSCULAR HGB CONC 33 G/DL (32-36); MEAN CORPUSCULAR VOLUME 100 FL (80-99); MEAN PLATELET VOLUME 12.6 FL (7.4-10.4); MONOCYTES # (AUTO) 0.5 X 10^3 (0.0-1.0); MONOCYTES % (AUTO) 5 % (0-12); NEUTROPHILS # (AUTO) 8.7 X 10^3 (1.8-7.8); NEUTROPHILS % (AUTO) 90 % (42-75); PLATELET COUNT 77 10^3/uL (130-400); RED CELL DISTRIBUTION WIDTH 14.9 % (10.0-14.5); WHITE BLOOD COUNT 9.7 10^3/uL (4.3-11.0)
--- NOTE | 2019-07-08 05:52 | Pulmonary Progress Note ---
Subjective Time Seen by a Provider: 05:52 Sepsis Event Evaluation Height, Weight, BMI Height: '" Weight: lbs. oz. kg; 43.75 BMI Method: Exam Exam Vital Signs Date Time Temp Pulse Resp B/P (MAP) Pulse Ox O2 Delivery O2 Flow Rate FiO2 07/08/19 01:58 60 15 96 70.00 07/08/19 00:00 36.4 68 22 97/59 (72) 97 NIV Bilevel 14.00 70.00 07/07/19 21:52 93 High Flow N/C 9.00 07/07/19 21:20 99/60 (73) 07/07/19 21:00 High Flow N/C 9.00 07/07/19 17:56 92 High Flow N/C 9.00 07/07/19 16:00 36.2 66 22 98/57 (71) 96 High Flow N/C 9.00 07/07/19 14:37 9 High Flow N/C 9.00 07/07/19 11:37 95/62 (73) 93 High Flow N/C 9.00 07/07/19 11:11 89 07/07/19 11:11 91 07/07/19 11:08 92 High Flow N/C 9.00 07/07/19 08:00 36.3 80 20 96/65 (75) 90 High Flow N/C 9.00 07/07/19 08:00 92 High Flow N/C 9.00 07/07/19 07:00 92 High Flow N/C 9.00 9.00 07/07/19 06:43 92 High Flow N/C 9.00 I & O 07/08/19 07:00 Intake Total 3955.0 ml Output Total 2850 ml Balance 1105.0 ml Height & Weight Height: '" Weight: lbs. oz. kg; 43.75 BMI Method: General Appearance: No Apparent Distress, WD/WN, Obese HEENT: PERRL/EOMI, Pharynx Normal Neck: Normal Inspection, Supple Respiratory: Lungs Clear, Normal Breath Sounds, No Respiratory Distress Cardiovascular: Regular Rate, Rhythm, No Edema, No Murmur Capillary Refill: Greater Than 3 Seconds Gastrointestinal: normal bowel sounds, non tender, soft Extremity: Normal Inspection, Non Tender Neurologic/Psychiatric: Alert, Oriented x3, No Motor/Sensory Deficits, Normal Mood/Affect Skin: Normal Color, Warm/Dry Lymphatic: No Adenopathy Results Lab Laboratory Tests 07/07/19 06:52 07/08/19 05:05 Assessment/Plan Assessment/Plan COPD exacerbation -Duonebs Q4h RT; Q2h PRN -Solumedrol 40mg Q6h -toro cultures pending -Requiring Vapotherm high flow oxygen -Aggressively titrate Fi02 for Sp02 89-92% -cont pulse ox - CTA - reviewed -Continue Zosyn Vanco -toro culture Acute on chronic Respiratory Failure -BiPAP PRN -ABG C02 on admission is 64 -Pt is high risk for continued decline and recurrent hospitalizations. Pt will benefit from home vent to mask. 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
[2019-07-08] MEDS: inSUlin ASPART (NovoLOG) 1 UNIT/0.01 ML (CHARGE PER UNIT) SC SCH ×2 (05:58→12:09)
[2019-07-08 06:04] LABS: BUN/CREATININE RATIO 31; CALCIUM 8.9 MG/DL (8.5-10.1); CARBON DIOXIDE 28 MMOL/L (21-32); CHLORIDE 95 MMOL/L (98-107); CREATININE SERUM 1.01 MG/DL (0.60-1.30); GFR ESTIMATED > 60; GLUCOSE 289 MG/DL (70-105); MAGNESIUM 2.2 MG/DL (1.6-2.4); PHOSPHORUS 4.6 MG/DL (2.3-4.7); POTASSIUM 4.4 MMOL/L (3.6-5.0); SODIUM 136 MMOL/L (135-145)
[2019-07-08] MEDS: FUROSEMIDE 40 MG/4 ML INJ (LASIX) IV SCH (06:25)
[2019-07-08] MEDS: KCL 20 MEQ TAB (K-DUR) PO SCH (06:25)
[2019-07-08] MEDS: RT-ADVAIR HFA 115/21 MCG PER PUFF IH SCH (06:48)
[2019-07-08] MEDS: UMECLIDINIUM BROMIDE (INCRUSE ELLIPTA) 7'S IH SCH (06:48)
[2019-07-08 07:48] VITALS: BP 103/60
[2019-07-08] MEDS: NICOTINE 21 MG (NICODERM) PATCH TD SCH (09:02)
[2019-07-08] MEDS: lisINopril 20 MG (PRINIVIL) TABLET PO SCH (09:02)
[2019-07-08] MEDS: BRIMONIDINE 0.2% (ALPHAGAN) OPHTH SOLN 5 ML BTL OU SCH (09:02)
[2019-07-08] MEDS: meTOprolol TARTRATE 50 MG (LOPRESSOR) TAB PO SCH (09:03)
[2019-07-08] MEDS: ENOXAPARIN 40 MG/0.4 ML (LOVENOX) SYR SC SCH (09:03)
[2019-07-08] MEDS: FAMOTIDINE 20 MG (PEPCID) TABLET PO SCH (09:04)
[2019-07-08] MEDS: NICOTINE PATCH REMOVAL TP SCH (09:04)
[2019-07-08] MEDS ORDERED: AUGMENTIN 875 MG TAB (AMOXICILLIN/CLAVULANATE) PO NR (11:00)
[2019-07-08] MEDS ORDERED: PRED10TA22 PO ×2 (11:06→11:09)
[2019-07-08] MEDS ORDERED: AMOX-358 PO ×2 (11:06→11:09)
[2019-07-08 12:02] VITALS: BP 104/71
[2019-07-08 13:00] VITALS: BP 104/71
--- NOTE | 2019-07-08 13:13 | Discharge Summary ---
Discharge Summary Hospital Course Problems/Dx: (1) Acute on chronic respiratory failure with hypoxia Status: Acute Hospital Course Date of Admission: Jun 30, 2019 at 15:57 Admission Diagnosis : COPD with acute exacerbation Family Physician/Provider: Vince Auguste Physician Date of Discharge: 07/08/19 Discharge Diagnosis: acute on chronic hypoxic respiratory failure, COPD with acu te exacerbation, pneumonia Hospital Course: Theron Luna is a 58-year-old male with past medical history of oxygen dependent COPD who presented from pulmonology clinic with shortness of breath and was admitted with acute on chronic hypoxic respiratory failure. He was treated for a COPD exacerbation with steroids and breathing treatments. He failed to improve and a CT was done which revealed a possible consolidation. He remained afebrile without leukocytosis. He was started on IV antibiotics. His oxygen requirements decreased and he returned to his baseline oxygen need. He was given a steroid taper and a short course of Augmentin on discharge. He should follow-up with his primary care physician at the [facility] in 1-2 weeks. Labs and Pending Lab Test: Laboratory Tests 07/07/19 14:20: Vancomycin Level Trough 12.3 07/07/19 15:57: Glucometer 257H 07/07/19 20:38: Glucometer 281H 07/08/19 05:05: White Blood Count 9.7, Red Blood Count 5.37, Hemoglobin 17.6, Hematocrit 54, Mean Corpuscular Volume 100H, Mean Corpuscular Hemoglobin 33, Mean Corpuscular Hemoglobin Concent 33, Red Cell Distribution Width 14.9H, Platelet Count 77L, Mean Platelet Volume 12.6H, Neutrophils (%) (Auto) 90H, Lymphocytes (%) (Auto) 5L, Monocytes (%) (Auto) 5, Eosinophils (%) (Auto) 0, Basophils (%) (Auto) 0, Neutrophils # (Auto) 8.7H, Lymphocytes # (Auto) 0.5L, Monocytes # (Auto) 0.5, Eosinophils # (Auto) 0.0, Basophils # (Auto) 0.0, Sodium Level 136, Potassium Level 4.4, Chloride Level 95L, Carbon Dioxide Level 28, Anion Gap 13, Blood Urea Nitrogen 31H, Creatinine 1.01, Estimat Glomerular Filtration Rate > 60, BUN/Creatinine Ratio 31, Glucose Level 289H, Calcium Level 8.9, Phosphorus Level 4.6, Magnesium Level 2.2 07/08/19 05:12: Glucometer 243H 07/08/19 11:09: Glucometer 379H Microbiology 07/06/19 MRSA Screen - Final, Complete 07/06/19 Blood Culture - Preliminary, Resulted No growth Home Meds Active Prednisone 10 Mg Tab.ds.pk 10 Mg PO DAILY Take 6 tabs(60mg)daily,decrease by 1 tab(10MG)daily. Augmentin 875-125 Tablet (Amoxicillin/Potassium Clav) 1 Each Tablet 1 Each PO BID 5 Days Reported Atorvastatin Calcium 80 Mg Tablet 40 Mg PO HS TAKES 1/2 (80MG) TABLET Aspirin EC (Aspirin) 81 Mg Tablet.dr 81 Mg PO MOFR Brimonidine Tartrate 5 Ml Btl 1 Drop OU BID Latanoprost 2.5 Ml Drops 1 Drop OU HS LAST FILLED 7.5ML 12-06-18 Potassium Chloride 20 Meq Tablet.er 20 Meq PO BID LAST FILLED #180 01-25-19 Fosinopril Sodium 10 Mg Tablet 10 Mg PO DAILY HE TAKES 1/2 (20MG) TABLET Metoprolol Tartrate 50 Mg Tablet 25 Mg PO BID TAKES 1/2 (50MG) TABLET Spiriva Respimat 2.5MCG/ACTUATION (Tiotropium [place]) 4 Gm Mist.inhal 2 Puff IH DAILY LAST FILLED #3 03-02-19 Multivitamins (Multivitamin) 1 Each Tablet 1 Tab PO DAILY Symbicort 160-4.5 Mcg Inhaler (Budesonide/Formoterol Fumarate) 10.2 Gm Hfa.aer.ad 2 Puff IH BID LAST FILLED #3 03-02-19 Furosemide 40 Mg Tablet 40 Mg PO BID Assessment/Pt Instructions take medications as prescribed. Complete her course of antibiotics evening you're feeling better. complete your prednisone taper. Follow up with her primary care physician at the [facility]. Discharge Planning: <30 minutes discharge planning Discharge Instructions Discharge Diet: No Restrictions Activity as Tolerated: Yes Pneumonia Vaccine Order Indica: Yes Discharge Physical Examination Vital Signs Vital Signs Date Time Temp Pulse Resp B/P (MAP) Pulse Ox O2 Delivery O2 Flow Rate FiO2 07/08/19 12:02 36.4 72 20 104/71 (82) 91 High Flow N/C 3.00 07/06/19 21:10 60 General Appearance: No Apparent Distress, WD/WN HEENT: PERRL/EOMI, Pharynx Normal Respiratory: Lungs Clear, Normal Breath Sounds, No Respiratory Distress Cardiovascular: Regular Rate, Rhythm, No Edema, No Murmur Gastrointestinal: Normal Bowel Sounds, Non Tender, Soft Extremity: Normal Inspection, Non Tender, Pedal Edema, Swelling Skin: Other (venous stasis dermatitis) Neurologic/Psychiatric: Alert, Oriented x3, No Motor/Sensory Deficits, Normal Mood/Affect Allergies: Coded Allergies: No Known Drug Allergies (Unverified , 05/25/19) Discharge Summary Date of Admission Jun 30, 2019 at 15:57 Date of Discharge Discharge Date: Jul 08, 2019 Discharge Time: 13:12 Admission Diagnosis Acute Hypoxemic Respiratory Failure Consults/Procedures Consulations pulmonology Discharge Diagnosis Acute on chronic respiratory failure with hypoxemia, COPD with acute exacerbation, pneumonia (1) Acute on chronic respiratory failure with hypoxia Status: Acute Clinical Quality Measures DVT/VTE Risk/Contraindication: Risk Factor Score Per Nursin RFS Level Per Nursing on Admit: 4+=Very High PAYTON ROTH MD Jul 08, 2019 13:12
[2019-07-08] MEDS ORDERED: AUGMENTIN 875 MG TAB (AMOXICILLIN/CLAVULANATE) PO SCH (17:00)
[2019-07-08] MEDS ORDERED: predniSONE 20 MG TAB PO SCH (17:00)
== END 2019-07-08 13:00 | disposition home or self-care (01) | DRG 189 ==
LOC: ICU 15:57 → 4TH 07-01 09:52
PROVIDERS: ADMIT Family Medicine; ATTEND Family Medicine
PROC: 5A09357 Assistance with Respiratory Ventilation, Less than 24 Consecutive Hours, Continuous Positive Airway Pressure (ICD-10-PCS; principal; 2019-07-01)
DX: J96.21 Acute and chronic respiratory failure with hypoxia (principal); J18.9 Pneumonia, unspecified organism; J44.1 Chronic obstructive pulmonary disease with (acute) exacerbation; Z68.41 Body mass index [BMI] 40.0-44.9, adult; I11.0 Hypertensive heart disease with heart failure; I50.9 Heart failure, unspecified; E66.9 Obesity, unspecified; F17.210 Nicotine dependence, cigarettes, uncomplicated; G47.30 Sleep apnea, unspecified; E11.9 Type 2 diabetes mellitus without complications; D75.1 Secondary polycythemia; D69.6 Thrombocytopenia, unspecified; I87.2 Venous insufficiency (chronic) (peripheral); E78.5 Hyperlipidemia, unspecified; Y95 Nosocomial condition
CPT/HCPCS: 36415; 36600; 71045; 71275; 80048; 80053; 80202; 81000; 82164; 82805; 82962; 83605; 83735; 83880; 84100; 85007; 85025; 85027; 87040; 87081; 93306; 94640; 94660; 94760

== ENCOUNTER → 2019-06-30 | Outpatient (CLI) | payer OTHER, MEDICARE ==
[~2019-06-30] MED LIST changes: +ASPI-983 PO; +ATOR80TA76 PO; +BRIMON0.2 OU; +BUDE10.2 IH; +EYE DROPS; +FOSI10TA3 PO; +FURO40TA4 PO; +LATA2.5D5 OU; +LISINOPRIL PO; +METO50TA15 PO; +METOPROLOL PO; +MULT1TAB69 PO; +POTA-51 PO; +POTASSIUM PO; -RT-ALBUTEROL SULF 2.5 MG/3 ML PRE-MIX VIAL INH ONE; +TIOT4MIS2 IH
[2019-06-30 12:42] LABS: BUN/CREATININE RATIO 12; CREATININE SERUM 0.81 MG/DL (0.60-1.30); GFR ESTIMATED > 60
--- NOTE | 2019-06-30 13:20 | Diagnostic Imaging Report ---
PROCEDURE: US Venous Lower Ext Dereje. TECHNIQUE: Multiple real-time grayscale images were obtained over the lower extremities in various projections, bilaterally. Additional duplex Doppler and color Doppler images were also obtained. INDICATION: Dyspnea. Bilateral lower extremity edema. COMPARISON: None FINDINGS: The bilateral common femoral vein, femoral vein, deep femoral vein, and popliteal vein are normal in appearance. These vessels show normal compressibility, color flow and doppler augmentation. The visualized deep calf veins demonstrate no distinct intraluminal thrombus. IMPRESSION: 1. No sonographic evidence of deep venous thrombosis in the bilateral lower extremities. Dictated by: Dictated on workstation # [id number]
--- NOTE | 2019-06-30 13:31 | Diagnostic Imaging Report ---
PROCEDURE: CT angiography of the chest with contrast. TECHNIQUE: Multiple contiguous axial images were obtained through the chest after uneventful bolus administration of intravenous contrast. 3D reconstructed CTA MIP acquisitions were also performed. Auto Exposure Controls were utilized during the CT exam to meet ALARA standards for radiation dose reduction. INDICATION: Shortness of breath. COMPARISON: Correlation is made with prior CT chest from 05/25/2019. FINDINGS: Evaluation of the pulmonary arterial system is without evidence of thromboembolism. No definite filling defects are seen within central, lobar, or segmental branches. The thoracic aorta is normal in caliber. No dissection is identified. No pericardial fluid is identified. There is trace left pleural effusion and tzene-bg-faquaeys right pleural effusion, similar to examination one month earlier. No axillary lymphadenopathy is identified. There are mildly prominent lymph nodes in the mediastinum, similar to prior exam. The poncho are unremarkable. Parenchymal evaluation does show centrilobular emphysematous changes. There is some ill-defined micronodules throughout both lungs, similar to prior exam. There is some parenchymal consolidation in the right lower lobe and right middle lobe, similar to prior exam. Upper abdomen is unremarkable. IMPRESSION: 1. No evidence of pulmonary embolism or thoracic aortic dissection. 2. Trace left and moderate right pleural effusion. 3. Extensive bilateral infiltrates, consolidative in the right lower lobe and right middle lobe. There are ill-defined nodular opacities throughout both lungs. The findings remain suggestive of an infectious/inflammatory process with underlying centrilobular emphysema. Dictated by: Dictated on workstation # [id number]
[2019-06-30 13:51] LABS: ABG BASE EXCESS 14.4 MMOL/L (-2.5-2.5); ABG OXYGEN SATURATION 83 % (94-100); ABG PCO2 64 MMHG (35-45); ABG PH 7.41 (7.37-7.43); ABG PO2 45 MMHG (79-93); ABG TCO2 41.9 MMOL/L (21.0-31.0)
[2019-06-30 13:54] LABS: ALLENS TEST YES-POS; INSPIRED O2 6; PATIENT TEMP 36.5; VENTILATOR NO
== END ==
LOC: RAD 12:04
PROVIDERS: ATTEND Nurse Practitioner Family
DX: J90 Pleural effusion, not elsewhere classified (principal); J44.9 Chronic obstructive pulmonary disease, unspecified; G47.30 Sleep apnea, unspecified; R94.2 Abnormal results of pulmonary function studies; R91.8 Other nonspecific abnormal finding of lung field; R60.0 Localized edema; Z72.0 Tobacco use
CPT/HCPCS: 36415; 36600; 71275; 82565; 82805; 84520; 93970